=== PATIENT | female | born 1935 | race Caucasian/White ===

== ENCOUNTER 2016-05-24 09:09 | Outpatient (CLI) | payer MEDICARE, OTHER ==
[2016-05-24 10:15] LABS: Hemoglobin A1c 5.6 % (4.0-6.0)
[2016-05-24 10:33] LABS: ALT (SGPT) 12 U/L (0-55); AST (SGOT) 17 U/L (5-34); Albumin 3.5 g/dL (3.4-4.8); Alkaline Phosphatase 82 U/L (40-150); Anion Gap 19 mmol/L (10-20); BUN (Urea Nitrogen) 25 mg/dL (9.8-20.1); Bilirubin, Direct 0.3 mg/dL (0.1-0.3); Bilirubin, Total 0.6 mg/dL (0.2-1.2); Calc. Creatinine Clearance 0 mL/min (70-130); Calcium 9.1 mg/dL (7.8-10.44); Carbon Dioxide 31 mmol/L (23-31); Cardiac Risk 2.8 (Less than 4.5); Chloride 99 mmol/L (98-107); Cholesterol 123 mg/dL (< 200 Desired); Estimated GFR-MDRD 55; Glucose 121 mg/dL (83-110); HDL Cholesterol 44 mg/dL (>60 Neg Risk); LDL Cholesterol, Calculated 65 mg/dL; Potassium 3.5 mmol/L (3.5-5.1); Protein, Total 6.6 g/dL (5.8-8.1); Sodium 145 mmol/L (136-145); Triglycerides 68 mg/dL (Less than 150); Uric Acid 5.5 mg/dL (2.6-6.0)
[2016-05-24 12:01] LABS: #Basophils 0.1 thou/uL (0.0-0.2); #Eosinphils 0.2 thou/uL (0.0-0.7); #Lymphocytes 0.9 thou/uL (1.20-3.40); #Monocytes 0.7 thou/uL (0.11-0.59); #Neutrophils 6.4 thou/uL (1.40-6.50); %Basophils 0.7 % (0.0-1.0); %Eosinophils 2.9 % (0.0-10.0); %Lymphocytes 10.8 % (21.0-51.0); %Monocytes 7.9 % (0.0-10.0); %Neutrophils 77.6 % (42.0-75.0); Hemoglobin 11.9 g/dL (12.0-16.0); Mean Corpuscular HGB CONC 30.8 g/dL (32.0-36.0); Mean Corpuscular Hemoglobin 29.2 pg (27.0-31.0); Mean Corpuscular Volume 94.6 fl (81.0-99.0); Mean Platelet Volume 6.4 fL (7.4-10.4); Platelet Count 265 thou/uL (130-400); RBC Distribution Width 15.2 % (11.5-14.5); White Blood Cell (WBC) Count 8.3 thou/uL (4.8-10.8)
== END 2016-05-24 09:10 | disposition home or self-care (01) ==
LOC: MADLABBHPM 09:09
PROVIDERS: ATTEND Family Medicine
DX: D64.9 Anemia, unspecified (principal); I50.30 Unspecified diastolic (congestive) heart failure; F32.9 Major depressive disorder, single episode, unspecified; M10.9 Gout, unspecified; E11.9 Type 2 diabetes mellitus without complications
CPT/HCPCS: 36415; 80048; 80061; 80076; 83036; 84443; 84550; 85025

== ENCOUNTER 2016-07-26 09:17 | Outpatient (CLI) | payer MEDICARE, OTHER ==
[2016-07-26 10:18] LABS: ALT (SGPT) 8 U/L (0-55); AST (SGOT) 17 U/L (5-34); Albumin 3.7 g/dL (3.4-4.8); Alkaline Phosphatase 78 U/L (40-150); Anion Gap 16 mmol/L (10-20); BUN (Urea Nitrogen) 34 mg/dL (9.8-20.1); Bilirubin, Total 0.9 mg/dL (0.2-1.2); Calc. Creatinine Clearance 0 mL/min (70-130); Calcium 8.9 mg/dL (7.8-10.44); Carbon Dioxide 32 mmol/L (23-31); Cardiac Risk 3.3 (Less than 4.5); Chloride 95 mmol/L (98-107); Cholesterol 119 mg/dL (< 200 Desired); Estimated GFR-MDRD 38; Globulin 3.3 g/dL (2.4-3.5); Glucose 126 mg/dL (83-110); HDL Cholesterol 36 mg/dL (>60 Neg Risk); LDL Cholesterol, Calculated 67 mg/dL; Potassium 3.2 mmol/L (3.5-5.1); Sodium 140 mmol/L (136-145); Triglycerides 78 mg/dL (Less than 150)
== END 2016-07-26 09:18 | disposition home or self-care (01) ==
LOC: MADLABBHPM 09:17
PROVIDERS: ATTEND Family Medicine
DX: E87.6 Hypokalemia (principal)
CPT/HCPCS: 36415; 80053; 80061

== ENCOUNTER 2016-08-24 08:55 | Outpatient (CLI) | payer MEDICARE, OTHER ==
[2016-08-24 09:28] LABS: Hemoglobin A1c 6.2 % (4.0-6.0)
[2016-08-24 09:31] LABS: Anion Gap 18 mmol/L (10-20); BUN (Urea Nitrogen) 38 mg/dL (9.8-20.1); Calc. Creatinine Clearance 0 mL/min (70-130); Calcium 8.9 mg/dL (7.8-10.44); Carbon Dioxide 28 mmol/L (23-31); Chloride 98 mmol/L (98-107); Estimated GFR-MDRD 47; Glucose 153 mg/dL (83-110); Potassium 3.3 mmol/L (3.5-5.1); Sodium 141 mmol/L (136-145); Uric Acid 10.7 mg/dL (2.6-6.0)
[2016-08-24 09:33] LABS: #Basophils 0.1 thou/uL (0.0-0.2); #Eosinphils 0.2 thou/uL (0.0-0.7); #Lymphocytes 1.6 thou/uL (1.20-3.40); #Monocytes 0.8 thou/uL (0.11-0.59); #Neutrophils 9.6 thou/uL (1.40-6.50); %Lymphocytes 12.8 % (21.0-51.0); %Monocytes 6.8 % (0.0-10.0); %Neutrophils 77.4 % (42.0-75.0); Hemoglobin 11.6 g/dL (12.0-16.0); Mean Corpuscular HGB CONC 32.1 g/dL (32.0-36.0); Mean Corpuscular Volume 84.3 fl (81.0-99.0); Mean Platelet Volume 6.5 fL (7.4-10.4); Platelet Count 274 thou/uL (130-400); RBC Distribution Width 15.7 % (11.5-14.5); Red Blood Cell (RBC) Count 4.28 mill/uL (4.20-5.40); White Blood Cell (WBC) Count 12.4 thou/uL (4.8-10.8)
== END 2016-08-24 08:56 | disposition home or self-care (01) ==
LOC: MADLABBHPM 08:55
PROVIDERS: ATTEND Family Medicine
DX: D64.9 Anemia, unspecified (principal); M10.9 Gout, unspecified; E11.9 Type 2 diabetes mellitus without complications
CPT/HCPCS: 36415; 80048; 83036; 84550; 85025

== ENCOUNTER 2016-09-30 09:23 | Outpatient (CLI) | payer MEDICARE, OTHER ==
[2016-09-30 10:03] LABS: Anion Gap 16 mmol/L (10-20); BUN (Urea Nitrogen) 37 mg/dL (9.8-20.1); Calc. Creatinine Clearance 0 mL/min (70-130); Carbon Dioxide 33 mmol/L (23-31); Chloride 95 mmol/L (98-107); Estimated GFR-MDRD 42; Glucose 150 mg/dL (83-110); Sodium 141 mmol/L (136-145); Uric Acid 7.3 mg/dL (2.6-6.0)
[2016-09-30 11:08] LABS: #Basophils 0.1 thou/uL (0.0-0.2); #Eosinphils 0.2 thou/uL (0.0-0.7); #Lymphocytes 1.2 thou/uL (1.20-3.40); #Monocytes 0.9 thou/uL (0.11-0.59); #Neutrophils 8.9 thou/uL (1.40-6.50); %Basophils 0.5 % (0.0-1.0); %Lymphocytes 10.5 % (21.0-51.0); %Monocytes 8.1 % (0.0-10.0); %Neutrophils 78.9 % (42.0-75.0); Anisocytosis SLIGHT = 6-15 cells (100X) (0-5/hpf); Hemoglobin 9.5 g/dL (12.0-16.0); Hypochromia SLIGHT = 6-15 cells (100X) (0-5/hpf); MDiff Complete? YES; Mean Corpuscular HGB CONC 31.2 g/dL (32.0-36.0); Mean Corpuscular Hemoglobin 24.5 pg (27.0-31.0); Mean Corpuscular Volume 78.4 fl (81.0-99.0); Mean Platelet Volume 5.8 fL (7.4-10.4); Platelet Count 360 thou/uL (130-400); RBC Distribution Width 16.4 % (11.5-14.5); Red Blood Cell (RBC) Count 3.89 mill/uL (4.20-5.40); White Blood Cell (WBC) Count 11.3 thou/uL (4.8-10.8)
== END 2016-09-30 09:24 ==
LOC: MADLABBHPM 09:23
PROVIDERS: ATTEND Family Medicine
DX: I48.91 Unspecified atrial fibrillation (principal); M10.9 Gout, unspecified
CPT/HCPCS: 36415; 80048; 84550; 85025

== ENCOUNTER 2016-10-14 12:43 | Outpatient (CLI) | payer MEDICARE, OTHER ==
[2016-10-14 13:17] LABS: Anion Gap 17 mmol/L (10-20); BUN (Urea Nitrogen) 36 mg/dL (9.8-20.1); Calc. Creatinine Clearance 0 mL/min (70-130); Calcium 8.9 mg/dL (7.8-10.44); Carbon Dioxide 29 mmol/L (23-31); Chloride 97 mmol/L (98-107); Estimated GFR-MDRD 38; Glucose 146 mg/dL (83-110); Potassium 3.4 mmol/L (3.5-5.1); Sodium 140 mmol/L (136-145)
[2016-10-14 13:18] LABS: #Basophils 0.1 thou/uL (0.0-0.2); #Eosinphils 0.1 thou/uL (0.0-0.7); #Lymphocytes 1.1 thou/uL (1.20-3.40); #Monocytes 0.8 thou/uL (0.11-0.59); #Neutrophils 8.7 thou/uL (1.40-6.50); %Basophils 0.9 % (0.0-1.0); %Eosinophils 1.3 % (0.0-10.0); %Lymphocytes 10.1 % (21.0-51.0); %Monocytes 7.4 % (0.0-10.0); %Neutrophils 80.3 % (42.0-75.0); Hemoglobin 9.2 g/dL (12.0-16.0); MDiff Complete? YES; Mean Corpuscular HGB CONC 30.8 g/dL (32.0-36.0); Mean Corpuscular Hemoglobin 23.2 pg (27.0-31.0); Mean Corpuscular Volume 75.3 fl (81.0-99.0); Mean Platelet Volume 5.7 fL (7.4-10.4); Microcytosis SLIGHT = 6-15 cells (100X) (0-5/hpf); Platelet Count 354 thou/uL (130-400); RBC Distribution Width 16.3 % (11.5-14.5); Red Blood Cell (RBC) Count 3.96 mill/uL (4.20-5.40); White Blood Cell (WBC) Count 10.8 thou/uL (4.8-10.8)
== END 2016-10-14 12:44 | disposition home or self-care (01) ==
LOC: MADLABBHPM 12:43
PROVIDERS: ATTEND Family Medicine
DX: I50.30 Unspecified diastolic (congestive) heart failure (principal); D64.9 Anemia, unspecified
CPT/HCPCS: 36415; 80048; 85025

== ENCOUNTER 2017-01-06 19:13 | Inpatient (IN) | payer MEDICARE, OTHER ==
[2017-01-06] MEDS ORDERED: Acetaminophen 325 MG TAB PO PRN (21:28)
[2017-01-06] MEDS ORDERED: Atorvastatin Calcium 10 MG TAB PO SCH (21:30)
[2017-01-06] MEDS ORDERED: Cefuroxime Axetil 250 MG TAB PO SCH (21:30)
[2017-01-07 07:22] LABS: #Basophils 0.1 thou/uL (0.0-0.2); #Eosinphils 0.4 thou/uL (0.0-0.7); #Lymphocytes 0.8 thou/uL (1.20-3.40); #Neutrophils 8.5 thou/uL (1.40-6.50); %Basophils 1.1 % (0.0-1.0); %Eosinophils 3.5 % (0.0-10.0); %Lymphocytes 7.7 % (21.0-51.0); %Monocytes 9.1 % (0.0-10.0); %Neutrophils 78.6 % (42.0-75.0); Anion Gap 12 mmol/L (10-20); BUN (Urea Nitrogen) 22 mg/dL (9.8-20.1); Calc. Creatinine Clearance 65 mL/min (70-130); Calcium 8.2 mg/dL (7.8-10.44); Carbon Dioxide 28 mmol/L (23-31); Chloride 97 mmol/L (98-107); Estimated GFR-MDRD 71; Glucose 108 mg/dL (83-110); Hemoglobin 9.8 g/dL (12.0-16.0); Mean Corpuscular HGB CONC 30.9 g/dL (32.0-36.0); Mean Corpuscular Hemoglobin 27.5 pg (27.0-31.0); Mean Corpuscular Volume 89.1 fl (81.0-99.0); Mean Platelet Volume 5.9 fL (7.4-10.4); Platelet Count 351 thou/uL (130-400); Potassium 3.2 mmol/L (3.5-5.1); RBC Distribution Width 21.5 % (11.5-14.5); Red Blood Cell (RBC) Count 3.55 mill/uL (4.20-5.40); Sodium 134 mmol/L (136-145); White Blood Cell (WBC) Count 10.8 thou/uL (4.8-10.8)
[2017-01-07] MEDS: FLUoxetine HCl 20 MG CAP PO SCH (08:52)
[2017-01-07] MEDS: Cefuroxime Axetil 250 MG TAB PO SCH ×2 (08:52→20:30)
[2017-01-07] MEDS: Polyethylene Glycol 3350 17 GM Packet PO SCH (08:54)
[2017-01-07] MEDS: DOFETILIDE PO SCH ×2 (08:58→20:33)
[2017-01-07] MEDS ORDERED: Metoprolol Tartrate 25 MG TAB PO SCH (09:00)
[2017-01-07] MEDS ORDERED: Aspirin 81 mg Enteric Coated Tablet PO SCH (09:00)
[2017-01-07] MEDS ORDERED: Docusate 100 MG CAP PO SCH (09:00)
[2017-01-07] MEDS ORDERED: Potassium Chloride 20 MEQ TAB PO SCH ×2 (09:00→21:00)
[2017-01-07] MEDS ORDERED: Furosemide 40 MG TAB PO SCH ×2 (09:00→21:00)
[2017-01-07] MEDS ORDERED: DOFETILIDE PO SCH ×2 (09:00→21:00)
[2017-01-07] MEDS: Furosemide 80 MG TAB PO SCH (14:20)
--- NOTE | 2017-01-07 18:36 | HP ---
Admitted to [facility] on the evening of 01/06/2017. CHIEF COMPLAINT: Severe weakness. History of PRESENT ILLNESS: The patient is an 81-year-old white female who has a history of chronic atrial fibrillation for which she is on medication to control her rate and is underwent a Watchman procedure. She has chronic diastolic congestive heart failure and very sensitive to fluid overload. 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 She has chronic kidney disease, chronic hypoxemia requiring the supplemental O2 and hyperten shayla. Her functional activities are severely limited due to the severe hypoxemia. She has a lady t hat assists her with her ADLs, and requires assistance with all her extended ADLs. She ambulates wi th the use of a walker, requires at least standby assistance for bathing and dressing, but she is ab le to feed herself. She is usually continent of her bowel, but has some urinary incontinence. The patient was hospitalized recently at [facility] from 12/30/2016 to 01/06/2017, a fter several falls and weakness at home and on evaluation, was found to have right-sided pleural eff usion, right-sided pneumonia and hypotensive with evidence also of congestive failure. The patient underwent a CT angio of the chest since the D-dimer was elevated. No evidence of pulmonary embolism was found, but the patient had a right-sided pleural effusion and a consolidation in the right mid lung. The patient was admitted to the hospital and treated for the pneumonia and the congestive hea rt failure. Her right pleural effusion gradually increased in size and required a right-sided thora centesis by her pulmonary doctor, Dr. Jackson. A 1000 mL of fluid were removed that looked to be a tra nsudate. Blood cultures from this were negative. It was felt to be secondary to her failure. She had a fall prior to her admission and sustained a laceration to the right temporal area that was sut ured and also sprain of the right ankle involving the anterior talofibular ligament. No fractures w ere seen and she was seen in consult by Dr. Oropeza who placed her in a walking boot. She did hav e some low blood pressure during her admission and her metoprolol was reduced. Her condition gradua lly stabilized, but she was left extremely weak. Patient consequently upon her discharge on 017, was transferred to [facility] to the halfway facility for continued treatment of the above medical problems, but also for physical therapy in an effort to try to improve her general conditioning and functional capabilities. The patient was admitted on the evening of 01/06/2017. The patient was seen early on the morning of 01/07/2017 and the patient said she was better, but jus t weak. She said that she really not been up out of bed since her hospitalization and is weak. Her breathing is much better since her initial hospitalization on 12/30/2016. Patient felt like this m orning she had gone back into atrial fibrillation. The nurse said that her rate was a little high. Patient had not received her evening dose of Tikosyn, but did the morning dose. Her daughter bromalcom ht her home medicine in and she had received a dose. Her EKG was done this morning and shows today a paced rhythm with a rate of 81. Presently, patient said she is feeling better. She does not feel like her heart is racing anymore and she is not short of breath. PAST HISTORY: Hospitalized at [facility] from 12/30/2016 to 01/06/2017 for weakness, syn cope, and was found to have a large right-sided pleural effusion secondary to acute congestive heart failure and right-sided pneumonia. See discharge summary and see the history of present illness fo r more explanation. Patient has a history of recurrent atrial fibrillation for which she has underg one numerous procedures including electrical cardioversion, number of ablations and eventually ended up with chronic atrial fibrillation. She required a pacemaker and is now in chronic atrial fibrill ation, heart has paced, this pacemaker was placed in 06/2012. Her rate is controlled with metoprolo l and she is also on Tikosyn. She underwent a Watchman procedure in 01/2016, allowing her to discon tinue the Coumadin. She is a poor candidate for anticoagulation because of previous GI bleeds. Giovana javier has chronic diastolic congestive heart failure and has frequent acute exacerbation. She is tricia y fluids sensitive and usually is able to maintain without acute congestive heart failure on 80 mg o f Lasix twice today and the Zaroxolyn 5 mg if her weight increases more than 4 pounds and this was c ontinued daily to her weight is back to her baseline. Her base weight at home is 164. She also fol lows a 2 liter of fluid restriction. The patient has chronic anemia. She had a gastrointestinal bl eed in 10/29/2016. 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 She has a history of gout, diabetes type 2 that is diet controlled, chronic kidney disease stage 3, venous insufficiency of the lower extremities, vitamin D deficiency, hypercholesterolemia, gastroesophageal reflux, depression, pulmonary hypertension, GI bleed seconda ry to an antral gastritis and vascular ectasia on 11/03/2015 required transfusion and required EGD w ith cautery, colonoscopy on with removal of adenomatous polyps. The patient has had a cholecyste ctomy in 2004. Her last echocardiogram on 01/03/2017 showed severe tricuspid regurgitation, moderat e to severe mitral regurgitation, elevated pulmonary artery systolic pressure, severely enlarged rig ht ventricle, ejection fraction 55-60%. CT scan of the brain on 12/30/2016 negative for any acute c hanges. Carotid Doppler on 12/30/2016 negative for any significant stenosis. X-ray of the right an kle showed no fracture on 01/02/2017. PRESENT MEDICINES: Acetaminophen 325 mg 2 every 4 hours as needed, aspirin 81 mg daily, atorvastati n 40 mg daily, Ceftin 250 mg b.i.d. started on 01/03/2017, docusate sodium 100 mg b.i.d., fluoxetine 20 mg daily, metoprolol 6.25 mg b.i.d. at home was on 25 mg b.i.d., O2 at 2-3 liters a minute by na radha cannula, pantoprazole 40 mg daily, Tikosyn 250 mcg b.i.d., Zaroxolyn 5 mg 1 every 3-4 days as ne eded for weight gain of 4 pounds, potassium chloride 20 mEq daily, furosemide 40 mg 2 tablets b.i.d. , MiraLax 17 grams in 8 ounces of water daily. At home, patient was on Nexium 40 mg daily instead o f the pantoprazole. ALLERGIES: CELEBREX causes anaphylaxis, IODINE, SULFA DRUGS, PREDNISONE cause hallucinations. REVIEW OF SYSTEMS: The patient said she has not had any fever. She has been extremely weak. She d oes not think her weight has changed. HEAD AND NECK: No complaints. The patient said the laceration on the right temporal area, she thin ks is healing. PULMONARY: The patient said her breathing is much better. She is comfortable at rest. she is, thi s morning on 2 to 3 liters by nasal cannula with O2 sat 90%. CARDIOVASCULAR: No chest pain. GASTROINTESTINAL: No nausea or vomiting. GENITOURINARY: The patient has some episodes of incontinence. MUSCULOSKELETAL: The patient said she is very weak and very limited capability. ADLs: Patient usually ambulates with a walker since her hospitalization, she has not been able to g et up or walk. Patient able to feed herself. Patient has some incontinence of the urine, but shaji nent with her bowels. The patient requires assistance with bathing and dressing. HABITS: Alcohol none. Tobacco none. SOCIAL HISTORY: The patient is , lives at home with her . She has a caregiver that c omes in and assists and a daughter who assist with her care and all of her instrumental ADLs. CODE STATUS: FULL CODE. PHYSICAL EXAMINATION: GENERAL: Shows a very pleasant 81-year-old white female who is lying in bed with the head elevated. She looks comfortable, in no distress. VITAL SIGNS: Her temperature is 97.5, pulse 80, respirations 22, O2 sat 96% on 4 liters, blood pres sure 106/57. Her weight is 165, with her baseline at home 164. HEAD: Normocephalic. Patient has about 1.5 cm laceration on the right temporal area that has been sutured and healing. Sutures will be removed. There is some bruising around that area. EARS: TMs are clear. EYES: Pupils were equal, round, and reactive. Sclerae nonicteric. NOSE: Normal. MOUTH AND THROAT: Normal. NECK: Carotids are equal, have irregular rhythm. LUNGS: Clear. HEART: Irregularly irregular rhythm with adequate rate and she has a pacemaker in the left upper an terior chest. ABDOMEN: Soft and nontender. EXTREMITIES: No edema. NEUROLOGIC: Patient alert and oriented x3 with severe weakness, but no focal weakness. MUSCULOSKELETAL: Right ankle, the patient has little bruising over the lateral aspect of the ankle and swelling. EKG was performed this morning shows a paced rhythm with a rate of 81. IMPRESSION: 1. Severe generalized weakness and deconditioning. A. Chronic secondary to her severe comorbidities, but acutely exacerbated with recent hospitalizati on from 12/30/2016 until 01/06/2017. B. Complicated by inability to walk. C. Complicated by marked decrease in her functional capabilities. 2. Recent hospitalization at [facility] from 12/30/2016 until 01/06/2017 for acute on ch ronic diastolic congestive heart failure with large right-sided pleural effusion requiring thoracent esis, right middle and lower lobe pneumonia, in syncope and collapse and chronic atrial fibrillation . 3. Chronic atrial fibrillation. A. Status post electric cardioversion with recurrence. Status post multiple ablations with recurre nce. 4. Chronic atrial fibrillation requiring pacemaker and medicines to control rate. Status post Watc hman procedure on 01/30/2016. A. Rate controlled. B. Episode of increased rate this morning since she missed her dose of Tikosyn and her metoprolol d ose had been reduced, rate now back in the 1980s as of 01/07/2017. 5. Chronic diastolic heart failure. A. Recent acute exacerbation with acute congestive heart failure with right-sided pleural effusion requiring right-sided thoracentesis on 01/04/2017. B. Resolving as of 01/07/2007. 6. Severe pulmonary hypertension. A. Complicated by chronic hypoxemia. B. Complicated by severely enlarged right ventricle and severe tricuspid regurgitation. 7. Chronic hypoxic respiratory failure. A. Secondary to interstitial pulmonary disease from amiodarone lung toxicity. B. Requires supplemental O2, usually 2-3 liters per minute. 8. Hypertension. 9. Chronic kidney disease, stage 3. A. Presently GFR is 71. 10. Anemia of chronic illness. A. History of iron deficiency due to gastrointestinal bleed in 10/2015 from ectatic vessels that re quired coagulation to be hemoglobin 9.8 as of 01/07/2017. 11. Venous insufficiency of the lower extremities. 12. Hypercholesterolemia. 13. Depression, controlled. 14. Gastroesophageal reflux. 15. Mitral regurgitation. 16. Right middle and lower lobe pneumonia, found on admission on 12/30/2016, on Ceftin and improved . 17. Recent fall resulting in laceration right temporal area that was sutured in healing and sprain of the right ankle involving the anterior talofibular ligament. PLAN: The patient has been admitted to [facility] due to her severe deconditioni ng. Physical therapy will work with her in an effort to try to improve her general strength, gait, and functional capability. She had a little elevation of her heart rate this morning that is probab ly secondary to the missed dose of the Tikosyn last evening since it was not in the drug formulary. This has been restarted from the medicines her family brought in this morning. She also had a redu ction in her metoprolol, we will increase this to 12.5 mg b.i.d. At home, she was on 25 mg b.i.d. We will give patient her furosemide 80 mg b.i.d. and then keep her on the fluid restriction and then weigh her daily. If she has more than a 4 pound weight gain, we will give her the Zaroxolyn 5 mg. This regimen has worked well at home. Physical therapy and occupational therapy will evaluate her and began working with her. We will start her back on her MiraLax for constipation and she will con tinue to use the walking boot on her right ankle.
[2017-01-07] MEDS: Docusate 100 MG CAP PO SCH (20:28)
[2017-01-07] MEDS: Atorvastatin Calcium 10 MG TAB PO SCH (20:29)
[2017-01-07] MEDS: Metoprolol Tartrate 25 MG TAB PO SCH (20:31)
[2017-01-07] MEDS: Potassium Chloride 20 MEQ TAB PO SCH (20:33)
[2017-01-07] MEDS ORDERED: Cefuroxime Axetil 250 MG TAB PO SCH (21:00)
[2017-01-07] MEDS ORDERED: ATORVASTATIN CALCIUM 40 MG PO SCH (21:00)
[2017-01-08 06:01] LABS: Anion Gap 14 mmol/L (10-20); BUN (Urea Nitrogen) 26 mg/dL (9.8-20.1); Calc. Creatinine Clearance 56 mL/min (70-130); Calcium 8.4 mg/dL (7.8-10.44); Carbon Dioxide 29 mmol/L (23-31); Chloride 97 mmol/L (98-107); Estimated GFR-MDRD 60; Glucose 135 mg/dL (83-110); Potassium 3.1 mmol/L (3.5-5.1); Sodium 137 mmol/L (136-145)
[2017-01-08] MEDS: Docusate 100 MG CAP PO SCH ×2 (08:35→21:39)
[2017-01-08] MEDS: FLUoxetine HCl 20 MG CAP PO SCH (08:35)
[2017-01-08] MEDS: Furosemide 80 MG TAB PO SCH ×2 (08:35→15:02)
[2017-01-08] MEDS: Metoprolol Tartrate 25 MG TAB PO SCH ×2 (08:35→21:40)
[2017-01-08] MEDS: Cefuroxime Axetil 250 MG TAB PO SCH ×2 (08:35→21:40)
[2017-01-08] MEDS: DOFETILIDE PO SCH ×2 (08:36→21:40)
[2017-01-08] MEDS: Potassium Chloride 20 MEQ TAB PO SCH ×3 (08:36→21:39)
[2017-01-08] MEDS: Polyethylene Glycol 3350 17 GM Packet PO SCH (08:38)
[2017-01-08] MEDS ORDERED: Polyethylene Glycol 3350 17 GM Packet PO SCH (09:00)
[2017-01-08] MEDS ORDERED: FLUoxetine HCl 20 MG CAP PO SCH (09:00)
--- NOTE | 2017-01-08 13:16 | PRG ---
DATE OF SERVICE: 01/08/2017. SUBJECTIVE: The patient says she is feeling a lot better. She said her breathing is better. Her w eight is down to another 2 pounds. She was able to get up on the bedside commode. Overall, she fee ls much better up. Stitches were removed from the laceration to the right temporal area yesterday. She had her ankles feeling better on the right foot. OBJECTIVE: GENERAL: The patient is lying in bed. She is smiling, looks very happy, appears in no distress. VITAL SIGNS: Shows a temperature 97.3, pulse 70, respirations 22, pulse 96 on 2 L, blood pressure 1 12/56, and her weight is 164, yesterday, her weight was 165. LUNGS: Clear. HEART: Regular rate. EXTREMITIES: No edema. LABORATORY DATA: Sodium 137, potassium 3.1, BUN 26, creatinine 0.9, and GFR 60. FBS 135. ASSESSMENT: 1. Severe generalized weakness and deconditioning. A. Chronic secondary to her severe comorbidities, but acutely exacerbated with recent hospitalizati on from 01/09/2017 until 01/06/2017. B. Presented here with inability to walk and severe weakness. C. Complicated by marked decline in her functional capabilities. D. Improved as of 01/08/2017. 2. Recent hospitalization at [facility] from 12/30/2016 until 01/06/2017 for acute on ch ronic diastolic congestive heart failure with large right-sided pleural effusion requiring thoracent esis with 1000 mL of transudate and right middle and lower lobe pneumonia and syncope and collapse a nd chronic atrial fibrillation. 3. Chronic atrial fibrillation. A. Status post electrical cardioversion with recurrence. Statuses post multiple ablations with rec urrence. B. Required pacemaker for prevention of bradycardia and medications to control the rapid rate. C. Status post Watchman procedure on 01/30/2016. D. Some episodes of increased rate yesterday have resolved since patient is back on her Tikosyn reg ularly and her metoprolol was increased. 4. Chronic diastolic heart failure. A. Recent acute exacerbation with acute congestive heart failure with right-sided pleural effusion requiring right thoracentesis on 01/04/2017. B. Resolved as of 01/07/2017. 5. Severe pulmonary hypertension. A. Complicated by chronic hypoxemia. B. Complicated by severely enlarged right ventricle and severe tricuspid regurgitation. 6. Chronic hypoxic respiratory failure. A. Secondary to interstitial pulmonary disease from amiodarone lung toxicity. B. Requires supplemental O2 usually 2-3 liters per minute. 7. Hypertension. 8. Chronic kidney disease, stage 3. A. Stable. 9. Anemia of chronic illness. 10. Venous insufficiency of the lower extremity. 11. Hypercholesterolemia. 12. Depression, controlled. 13. Gastroesophageal reflux disease. 14. Mitral regurgitation. 15. Right middle and lower lobe pneumonia found on admission on 12/30/2016. A. Ceftin and resolving. 16. Recent fall, resulting laceration right zoroastrianism area that is healing and sutures out and sprain of the right ankle that is improving. PLAN: Overall, the patient looks better. We will continue the physical therapy. We will continue the medication well. Her potassium is still low and has dropped some. We will increase her potassi um supplementation 20 mEq 3 times a day. Continue PT.
[2017-01-08] MEDS: Atorvastatin Calcium 10 MG TAB PO SCH (21:39)
[2017-01-09] MEDS: Polyethylene Glycol 3350 17 GM Packet PO SCH (08:19)
[2017-01-09] MEDS: Docusate 100 MG CAP PO SCH ×2 (08:20→20:57)
[2017-01-09] MEDS: Furosemide 80 MG TAB PO SCH ×2 (08:20→14:10)
[2017-01-09] MEDS: Cefuroxime Axetil 250 MG TAB PO SCH ×2 (08:20→20:57)
[2017-01-09] MEDS: Metoprolol Tartrate 25 MG TAB PO SCH ×2 (08:20→20:57)
[2017-01-09] MEDS: Potassium Chloride 20 MEQ TAB PO SCH ×3 (08:20→20:59)
[2017-01-09] MEDS: DOFETILIDE PO SCH ×2 (08:21→20:58)
[2017-01-09] MEDS: FLUoxetine HCl 20 MG CAP PO SCH (08:22)
[2017-01-09] MEDS: Atorvastatin Calcium 10 MG TAB PO SCH (20:57)
[2017-01-10 05:20] LABS: #Basophils 0.1 thou/uL (0.0-0.2); #Eosinphils 0.4 thou/uL (0.0-0.7); #Lymphocytes 1.2 thou/uL (1.20-3.40); #Neutrophils 9.7 thou/uL (1.40-6.50); %Eosinophils 2.9 % (0.0-10.0); %Lymphocytes 9.5 % (21.0-51.0); %Monocytes 7.7 % (0.0-10.0); Hemoglobin 10.3 g/dL (12.0-16.0); Mean Corpuscular HGB CONC 30.5 g/dL (32.0-36.0); Mean Corpuscular Hemoglobin 26.8 pg (27.0-31.0); Mean Corpuscular Volume 87.9 fl (81.0-99.0); Mean Platelet Volume 5.4 fL (7.4-10.4); Platelet Count 468 thou/uL (130-400); RBC Distribution Width 21.9 % (11.5-14.5); Red Blood Cell (RBC) Count 3.85 mill/uL (4.20-5.40); White Blood Cell (WBC) Count 12.3 thou/uL (4.8-10.8)
[2017-01-10 05:23] LABS: Anisocytosis SLIGHT = 6-15 cells (100X) (0-5/hpf); Hypochromia SLIGHT = 6-15 cells (100X) (0-5/hpf)
[2017-01-10 05:35] LABS: Anion Gap 15 mmol/L (10-20); BUN (Urea Nitrogen) 31 mg/dL (9.8-20.1); Calc. Creatinine Clearance 60 mL/min (70-130); Calcium 8.6 mg/dL (7.8-10.44); Carbon Dioxide 28 mmol/L (23-31); Chloride 101 mmol/L (98-107); Estimated GFR-MDRD 66; Glucose 127 mg/dL (83-110); Potassium 3.8 mmol/L (3.5-5.1); Sodium 140 mmol/L (136-145)
[2017-01-10] MEDS: Polyethylene Glycol 3350 17 GM Packet PO SCH (08:57)
[2017-01-10] MEDS: Docusate 100 MG CAP PO SCH ×2 (08:57→20:52)
[2017-01-10] MEDS: Cefuroxime Axetil 250 MG TAB PO SCH ×2 (08:57→20:52)
[2017-01-10] MEDS: FLUoxetine HCl 20 MG CAP PO SCH (08:58)
[2017-01-10] MEDS: Metoprolol Tartrate 25 MG TAB PO SCH ×2 (08:58→20:52)
[2017-01-10] MEDS: DOFETILIDE PO SCH ×2 (08:58→20:54)
[2017-01-10] MEDS: Potassium Chloride 20 MEQ TAB PO SCH ×2 (08:58→20:54)
[2017-01-10] MEDS: Furosemide 80 MG TAB PO SCH ×2 (08:59→13:45)
--- NOTE | 2017-01-10 12:34 | PRG ---
DATE OF SERVICE: 01/10/2017 SUBJECTIVE: The patient said she is feeling better. She has walked just a little bit. She is wear ing her walking boot on the right leg and this is very comfortable and allows her to walk easier. H er ankle is doing better. She said she gets a little out of breath after any exertion going to the bathroom and coming back to her chair, but this is typical for her. She is not otherwise having any breathing trouble. At rest, nor when she is lying down. She said her weight dropped a couple more pounds. OBJECTIVE: The patient is sitting up in a bedside chair, is in good spirits, appears in no distress . Her temperature is 96.9, pulse 72, respirations 18, O2 sat 92% on 2 liters. Her blood pressure i s 119/58. Her weight is 164. Her lungs are clear. Heart, regular rate. Extremities, no edema. T he patient has a short leg walking removable cast on the right lower leg. Her lab shows an H\T\H of 10.3 and 33.9, white cell count 12,300, 79% segs, 10% lymphocytes, platelet count of 468,000. Her sodium is 140, potassium is up to 3.8, BUN 31, creatinine 0.83, glucose 127. ASSESSMENT: 1. Severe generalized weakness and deconditioning. A. Chronic secondary to her severe comorbidities, but acutely exacerbated with recent hospitalizati on from 12/30/2016 until 01/06/2017. B. Presented here with inability to walk or even sit up in a bedside chair due to the severe weakne ss. C. Complicated by marked decline in her functional capabilities. D. Improved where she is tolerating sitting up in a chair and walking short distances as of 017. 2. Recent hospitalization at [facility] from 12/30/2016 until 01/06/2017 for acute on ch ronic diastolic congestive heart failure with large right-sided pleural effusion requiring thoracent esis of 1000 mL of a transudate and right middle and lower lobe pneumonia and syncope and collapse a nd chronic atrial fibrillation. 3. Chronic atrial fibrillation. A. Status post electrocardioversion with recurrence. Status post multiple ablation with recurrence . B. Required pacemaker for prevention of symptomatic bradycardia and medication controlled the rapid rate. C. Status post Watchman procedure 12/29/2016. D. Chronic atrial fibrillation, but rate controlled. 4. Chronic diastolic heart failure. A. Recent acute exacerbation with acute congestive heart failure and right-sided pleural effusion r equiring right thoracentesis 01/04/2017. B. Resolved as of 01/07/2017. C. No evidence of acute congestive heart failure as of 01/10/2007. 5. Severe pulmonary hypertension. A. Complicated by chronic hypoxemia. B. Complicated by severe enlargement of the right ventricle with severe tricuspid regurgitation. 6. Chronic hypoxic respiratory failure. A. 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 B. Requires supplemental O2, usually 2-3 liters per minute. 7. Hypertension. 8. Chronic kidney disease stage 3, stable. 9. Anemia of chronic illness. 10. Venous insufficiency. 11. Hypercholesterolemia. 12. Depression, controlled. 13. Gastroesophageal reflux disease. 14. Mitral regurgitation. 15. Right middle and lower lobe pneumonia found on admission on 12/30/2016. A. On Ceftin. B. Resolving. 16. Recent fall resulting in a laceration of the right nondenominational area that required sutures that is he aling and sutures removed and sprain of the right ankle involving the right anterior talofibular lig ament that is improving and stabilized with a lower leg walking boot when ambulating PLAN: Overall, patient is improving. The hypokalemia is improved. We will continue present care. Continue physical therapy. We will reduce her potassium back to twice a day and continue to follow her potassium level.
[2017-01-10] MEDS ORDERED: Phytonadione 10 MG/ML AMP ONE (15:31)
[2017-01-10] MEDS: Atorvastatin Calcium 10 MG TAB PO SCH (20:52)
[2017-01-11] MEDS: Cefuroxime Axetil 250 MG TAB PO SCH ×2 (08:15→21:21)
[2017-01-11] MEDS: FLUoxetine HCl 20 MG CAP PO SCH (08:16)
[2017-01-11] MEDS: Metoprolol Tartrate 25 MG TAB PO SCH ×2 (08:16→21:21)
[2017-01-11] MEDS: Docusate 100 MG CAP PO SCH ×2 (08:16→21:21)
[2017-01-11] MEDS: Furosemide 80 MG TAB PO SCH ×2 (08:16→13:59)
[2017-01-11] MEDS: DOFETILIDE PO SCH ×2 (08:17→21:24)
[2017-01-11] MEDS: Potassium Chloride 20 MEQ TAB PO SCH ×2 (08:17→21:23)
[2017-01-11] MEDS: Polyethylene Glycol 3350 17 GM Packet PO SCH (08:17)
--- NOTE | 2017-01-11 09:39 | PRG ---
DATE OF SERVICE: 01/11/2017 SUBJECTIVE: The patient said she is feeling just fine. She had a good night's sleep. She walked s ome with physical therapy yesterday using a walking boot on that right foot. OBJECTIVE: The patient is sitting up at the bedside. She is alert, talkative, and appears very com fortable and happy and in no distress. Her vital signs and show a temperature of 98.8, pulse 79, re spirations 20, O2 sat 90% on 3-1/2 liters, blood pressure 115/71. Her weight is 165, which is her a dmission weight. She had dropped to 163 on 01/09/2017. Her lungs are clear. Heart has regular rat e. Extremities, no edema except for some mild edema over the right ankle from the sprain. ASSESSMENT: 1. Severe generalized weakness and deconditioning. A. Chronic secondary to her severe comorbidities, but acutely exacerbated with recent hospitalizati on from 12/30/2016 until 01/06/2017. B. Presented here with inability to walk or even sit up at a bedside chair due to the severe weakne ss. C. Complicated by marked decline in her functional capabilities. D. Improved where she is now sitting in a chair and walking short distances as of 01/11/2017. 2. Recent hospitalization at [facility] from 12/30/2016 to 01/06/2017 for acute on chron ic diastolic congestive heart failure with large right-sided pleural effusion requiring thoracentesi s of 1000 mL of a transudate and right middle and lower lobe pneumonia and syncope and collapse and her chronic atrial fib. 3. Chronic atrial fibrillation. A. Status post electrocardioversion with recurrence. Status post multiple ablations with recurrenc e. B. Requiring pacemaker for prevention of symptomatic bradycardia and medication controlled rapid ra te. C. Status post Watchman procedure on 01/2016. D. Chronic atrial fibrillation, but rate controlled. 4. Chronic diastolic heart failure. A. Recent acute exacerbation with acute congestive heart failure and right-sided pleural effusion r equiring thoracentesis on 01/04/2017. B. Resolved as of 01/07/2017. C. No evidence of acute congestive heart failure as of 01/11/2017. 5. Severe pulmonary hypertension. A. Complicated by chronic hypoxemia. B. Complicated by severe enlargement of the right ventricle with severe tricuspid regurgitation. 6. Chronic hypoxic respiratory failure. A. Secondary to interstitial pulmonary disease from amiodarone toxicity B. Requires supplemental O2, usually 2-3 liters per minute. 7. Hypertension. 8. Chronic kidney disease stage 3, stable. 9. Anemia of chronic illness. 10. Venous insufficiency. 11. Hypercholesterolemia. 12. Depression, controlled. 13. Gastroesophageal reflux disease, controlled. 14. Mitral regurgitation, stable. 15. Right middle lower lobe pneumonia, resolving. 16. Recent fall resulting in a laceration to the right temporal area that has healed and sprain of the right ankle involving the anterior talofibular ligament improving, requiring a lower leg walking boot for ambulation. PLAN: The patient continues to improve. We will continue to closely monitor her weight and continu e the fluid restriction, continue the diuretics and will utilize Zaroxolyn p.r.n. marked weight gain or shortness of breath. Continue PT.
[2017-01-11] MEDS: Atorvastatin Calcium 10 MG TAB PO SCH (21:21)
[2017-01-12 05:58] LABS: Anion Gap 15 mmol/L (10-20); BUN (Urea Nitrogen) 30 mg/dL (9.8-20.1); Calc. Creatinine Clearance 63 mL/min (70-130); Calcium 8.2 mg/dL (7.8-10.44); Carbon Dioxide 24 mmol/L (23-31); Chloride 103 mmol/L (98-107); Estimated GFR-MDRD 68; Glucose 112 mg/dL (83-110); Potassium 3.7 mmol/L (3.5-5.1); Sodium 138 mmol/L (136-145)
[2017-01-12 06:03] LABS: #Basophils 0.1 thou/uL (0.0-0.2); #Eosinphils 0.4 thou/uL (0.0-0.7); #Monocytes 0.8 thou/uL (0.11-0.59); #Neutrophils 8.9 thou/uL (1.40-6.50); %Basophils 0.8 % (0.0-1.0); %Eosinophils 3.3 % (0.0-10.0); %Monocytes 6.7 % (0.0-10.0); %Neutrophils 80.2 % (42.0-75.0); Hemoglobin 9.9 g/dL (12.0-16.0); Mean Corpuscular HGB CONC 30.6 g/dL (32.0-36.0); Mean Corpuscular Hemoglobin 26.8 pg (27.0-31.0); Mean Corpuscular Volume 87.5 fl (81.0-99.0); Mean Platelet Volume 5.6 fL (7.4-10.4); Platelet Count 437 thou/uL (130-400); RBC Distribution Width 22.1 % (11.5-14.5); Red Blood Cell (RBC) Count 3.68 mill/uL (4.20-5.40); White Blood Cell (WBC) Count 11.1 thou/uL (4.8-10.8)
[2017-01-12] MEDS: Polyethylene Glycol 3350 17 GM Packet PO SCH (08:24)
[2017-01-12] MEDS: Metoprolol Tartrate 25 MG TAB PO SCH ×2 (08:26→21:06)
[2017-01-12] MEDS: Docusate 100 MG CAP PO SCH ×2 (08:26→21:06)
[2017-01-12] MEDS: Cefuroxime Axetil 250 MG TAB PO SCH ×2 (08:26→21:07)
[2017-01-12] MEDS: DOFETILIDE PO SCH ×2 (08:26→21:07)
[2017-01-12] MEDS: Potassium Chloride 20 MEQ TAB PO SCH ×2 (08:28→21:07)
[2017-01-12] MEDS: FLUoxetine HCl 20 MG CAP PO SCH (08:29)
[2017-01-12] MEDS: Furosemide 80 MG TAB PO SCH ×2 (08:29→13:50)
--- NOTE | 2017-01-12 19:26 | PRG ---
DATE OF SERVICE: 01/12/2017 SUBJECTIVE: The patient said that she is doing fine. She slept well. She walked some with [employer] therapy. Her ankles are feeling better. OBJECTIVE: GENERAL: The patient is alert, appears very comfortable and in no distress. VITAL SIGNS: Shows a temperature of 97.6, pulse 72, respirations 18, O2 sat 91% on 3-1/2 liters and blood pressure 100/56. Her weight is 166. Output is 1100. LUNGS: Clear except there is a pleural rub over the right upper anterior chest. This can be heard and also felt with the hand. HEART: Regular rate. EXTREMITIES: No edema. LABORATORY DATA: Her lab shows an hemoglobin and hematocrit of 9.9 and 32.2, white cell count 11,10 0 with 80% segs, 9% lymphocytes and platelet count of 437,000. Her sodium 138, potassium 3.7, BUN 3 0, creatinine 0.81 and GFR 68. FBS 112. ASSESSMENT: 1. Severe generalized weakness and deconditioning. A. Chronic secondary to her severe comorbidities, but acutely exacerbated with recent hospitalizati on from 12/30/2016-01/06/2017. B. Presenting here with inability to walk or even sit up in a chair due to the severe weakness. C. Complicated by marked decline in her functional capabilities. D. Improved where she is now sitting comfortably in a bedside chair and walking a little further ea ch day as of 01/12/2017. 2. Recent hospitalization at [facility] from 12/30-01/06 for acute on chronic diastolic congestive heart failure with large right-sided pleural effusion requiring thoracentesis of 1000 mL of a transudate, right middle and lower lobe pneumonia and syncope, collapse and her chronic atrial fibrillation. 3. Chronic atrial fibrillation. A. Status post electrocardioversion with recurrent. Status post multiple ablations with recurrence . B. Requiring pacemaker for prevention of symptomatic bradycardia and medications to control rapid r ate. C. Status post Watchman procedure on 02/03/2016. The chronic atrial fibrillation, but rate control led. 4. Chronic diastolic heart failure. A. Recent acute exacerbation with acute congestive heart failure and right-sided pleural effusion r equiring thoracentesis on 01/04/2017. B. Resolved as of 01/07/2017. C. No evidence of acute congestive heart failure as of 01/12/2017. 5. Severe pulmonary hypertension. A. Complicated by chronic hypoxemia. B. Complicated by severe enlargement of the right ventricle was severe tricuspid regurgitation. 6. Chronic hypoxic respiratory failure. A. 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 B. Requires continuous supplemental O2 usually at 2-3 liters per minute. 7. Hypertension. 8. Chronic kidney disease stage 3. 9. Anemia of chronic illness. A. Hemoglobin up to 99 as of 01/12/2017. 10. Hypercholesterolemia. 11. Depression controlled. 12. Gastroesophageal reflux disease, controlled. 13. Mitral regurgitation stable. 14. Right middle lower lobe pneumonia, resolving. 15. Recent fall resulting laceration right temporal area and the sutures have been removed and area healing and sprain of the right ankle involving the anterior talofibular ligament that is improving . Requires lower leg walking boot for ambulation. 16. Right anterior pleural rub from recent pleural effusion and thoracentesis. PLAN: Overall, the patient continues to improve. We will continue present care. Anticipate gradua l resolution of the pleural rub. Presently, it is not creating any pain. Continue physical therapy .
[2017-01-12] MEDS: Atorvastatin Calcium 10 MG TAB PO SCH (21:06)
[2017-01-13] MEDS: DOFETILIDE PO SCH ×2 (08:46→21:19)
[2017-01-13] MEDS: Metoprolol Tartrate 25 MG TAB PO SCH ×2 (08:47→21:18)
[2017-01-13] MEDS: FLUoxetine HCl 20 MG CAP PO SCH (08:47)
[2017-01-13] MEDS: Polyethylene Glycol 3350 17 GM Packet PO SCH (08:47)
[2017-01-13] MEDS: Potassium Chloride 20 MEQ TAB PO SCH ×2 (08:48→21:19)
[2017-01-13] MEDS: Furosemide 80 MG TAB PO SCH ×2 (08:48→14:28)
[2017-01-13] MEDS: Cefuroxime Axetil 250 MG TAB PO SCH ×2 (08:48→21:20)
[2017-01-13] MEDS: Docusate 100 MG CAP PO SCH ×2 (08:52→21:18)
[2017-01-13] MEDS: Atorvastatin Calcium 10 MG TAB PO SCH (21:17)
[2017-01-14] MEDS: Furosemide 80 MG TAB PO SCH ×2 (08:28→14:37)
[2017-01-14] MEDS: Docusate 100 MG CAP PO SCH ×2 (08:28→21:29)
[2017-01-14] MEDS: Potassium Chloride 20 MEQ TAB PO SCH ×2 (08:28→21:27)
[2017-01-14] MEDS: FLUoxetine HCl 20 MG CAP PO SCH (08:28)
[2017-01-14] MEDS: Metoprolol Tartrate 25 MG TAB PO SCH ×2 (08:29→21:29)
[2017-01-14] MEDS: DOFETILIDE PO SCH ×2 (08:38→21:27)
[2017-01-14] MEDS: Polyethylene Glycol 3350 17 GM Packet PO SCH (08:38)
[2017-01-14] MEDS ORDERED: Metolazone 5 MG TAB PO SCH (09:15)
[2017-01-14] MEDS: Atorvastatin Calcium 10 MG TAB PO SCH (21:26)
--- NOTE | 2017-01-14 23:04 | PRG ---
DATE OF SERVICE: 01/14/2017 SUBJECTIVE: Patient thinks she is doing good. She slept good last night. She is participating in physical therapy. Her breathing has been good as long as she wears her oxygen. She has noticed mary t she started developed a little fluid in her legs. OBJECTIVE: GENERAL: The patient lying in bed, alert, and appears very comfortable and in no distress. VITAL SIGNS: Her temperature is 96.6, pulse 71, respirations 20, O2 sat 95% on 3.5 liters, blood pr essure 118/56. Her weight is up to 166. LUNGS: Clear. There is still pleural rub that can be heard and also felt in the right upper anteri or chest this is much less somewhat it has been remains nontender. HEART: Regular rate. EXTREMITIES: 1+ edema. ASSESSMENT: 1. Severe generalized weakness and deconditioning. A. Chronic secondary to her severe comorbidities, but acutely exacerbated with recent hospitalizati on from 12/30/2016 until 01/06/2017. B. Presenting here with inability to walk or even sit up in the chair due to the severe weakness. C. Complicated by marked decline in her functional capabilities. D. Marked improvement where she is comfortably sits in a bedside chair and now is walking a little further each day as of 01/14/2017. 2. 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 3. Chronic atrial fibrillation. A. Status post electrocardioversion with recurrence. Status post multiple ablations with recurrence . B. Requiring pacemaker for prevention of symptomatic bradycardia and medications controlled with ra pid rate. C. Status post Watchman procedure 02/03/2016. D. Chronic atrial fibrillation with rate controlled. 4. Chronic diastolic heart failure. A. Recent acute exacerbation during hospitalization from 12/30/2016 until 01/06/2017. B. No evidence of acute congestive heart failure, but patient is having increase in weight, increas ed peripheral edema as of 01/14/2017. 5. Severe pulmonary hypertension. A. Complicated by chronic hypoxemia. B. Complicated by severe enlargement of the right ventricle with severe tricuspid regurgitation. 6. Chronic hypoxic respiratory failure. A. 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 B. Requires continuous supplemental O2, usually at 2 to 3 liters per minute. 7. Hypertension. 8. Chronic kidney disease stage 3. 9. Anemia of chronic illness. 10. Hypercholesterolemia. 11. Depression controlled. 12. Gastroesophageal reflux disease, controlled. 13. Mitral regurgitation, stable. 14. Right middle lower lobe pneumonia clinically, resolving. 15. Recent fall prior to hospitalization resulting laceration right temporal area with suturing mary t have been removed and the area healing and sprain of the right ankle involving the anterior talofi bular ligament for which she uses a lower leg walking boot, improving. 16. Right anterior pleural rub, improving. PLAN: Overall, patient is making good progress. She is starting to retain more fluid demonstrated by peripheral edema and increased weight. Ordinarily at home when this happens, will use Zaroxolyn 5 mg to give a synergistic effect with a Lasix for diuresis. We will give patient 5 mg a day. Cont inue her physical therapy.
[2017-01-15 05:23] LABS: Anion Gap 14 mmol/L (10-20); BUN (Urea Nitrogen) 33 mg/dL (9.8-20.1); Calc. Creatinine Clearance 47 mL/min (70-130); Calcium 8.3 mg/dL (7.8-10.44); Carbon Dioxide 26 mmol/L (23-31); Chloride 103 mmol/L (98-107); Estimated GFR-MDRD 49; Glucose 121 mg/dL (83-110); Potassium 3.4 mmol/L (3.5-5.1); Sodium 140 mmol/L (136-145)
[2017-01-15] MEDS: FLUoxetine HCl 20 MG CAP PO SCH (08:39)
[2017-01-15] MEDS: Docusate 100 MG CAP PO SCH ×2 (08:39→21:36)
[2017-01-15] MEDS: Furosemide 80 MG TAB PO SCH ×2 (08:39→13:17)
[2017-01-15] MEDS: Metoprolol Tartrate 25 MG TAB PO SCH ×2 (08:39→21:36)
[2017-01-15] MEDS: Potassium Chloride 20 MEQ TAB PO SCH ×2 (08:39→21:37)
[2017-01-15] MEDS: DOFETILIDE PO SCH ×2 (08:40→21:37)
[2017-01-15] MEDS: Polyethylene Glycol 3350 17 GM Packet PO SCH (08:40)
--- NOTE | 2017-01-15 12:25 | PRG ---
DATE OF SERVICE: 01/15/2017 SUBJECTIVE: Patient said she is doing good. She said she had to urinate a lot yesterday and last e vening after she took Zaroxolyn, she is having no trouble with her breathing and at rest, she contin ues to use her oxygen. Her ankle was getting better and she is walking without a walking boot just within her room. OBJECTIVE: GENERAL: Patient is sitting up in her chair, she is alert, appears very comfortable in no distress. VITAL SIGNS: Shows temperature 96.8. Her pulse is 71, respirations 20, O2 sat 93% on 3 liters, blo od pressure 111/56. Her weight was 166, stable. She said yesterday they weighed her 168. LUNGS: Clear, did not hear the pleural rub today. HEART: Regular rate. EXTREMITIES: Trace edema. LABORATORY DATA: BUN 33, creatinine 1.07, GFR dropped to 47, probably as a result of the recent inc reased diuresis from the Zaroxolyn along with the furosemide. FBS 121. ASSESSMENT: 1. Severe generalized weakness and deconditioning. A. Chronic secondary to her severe comorbidities, but acutely exacerbated with recent hospitalizati on from 12/30/2016 to 01/06/2017. B. Presenting here with inability to walk or even sit up in a chair due to the severe weakness. C. Complicated by marked decline in her functional capabilities. D. Marked improvement where she comfortably sits and is walking in the room and some in the hallway s as of 01/15/2017. 2. Recent hospitalizations at [facility] from 12/30/2016 until 01/06/2017 for acute on c hronic diastolic congestive heart failure with large right-sided pleural effusion requiring thoracen tesis of 1000 mL of her transudate, right middle and lower lobe pneumonia, syncope and collapse and chronic atrial fibrillation. 3. Chronic atrial fibrillation. A. Status post electrocardioversion with recurrence. B. Status post multiple ablations with recurrence. C. Required pacemaker for prevention of symptomatic bradycardia and medications for control of rapi d rates. D. Status post Watchman procedure, 02/03/2016. E. Now on chronic atrial fibrillation, but rates controlled. 4. Chronic diastolic heart failure. A. Recent acute exacerbation during hospitalization from 12/30/2016 to 01/06/2017. B. No evidence of acute congestive heart failure. C. Recent increase in weight and increase in edema, resolved after a dose of Zaroxolyn on 7. 5. Severe pulmonary hypertension. A. Complicated by chronic hypoxemia. B. Complicated by severe enlargement of the right ventricle with severe tricuspid regurgitation. 6. Chronic hypoxic respiratory failure. A. 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 B. Requires continue supplemental O2 usually 2 to 3 liters per minute. 7. Hypertension. 8. Chronic kidney disease, stage 3. A. Mild decline in GFR as of 01/15/2017 to 49 from recent use of Zaroxolyn along with the furosemid e. 9. Anemia of chronic illness. 10. Depression, controlled. 11. Hypercholesterolemia. 12. Mitral regurgitation. 13. Right middle and lower lobe pneumonia. A. Clinically resolved. B. Has completed 10-day course of oral Ceftin since she has been here at this hospital. 14. Recent fall prior to hospitalization, results a laceration in right temporal area that required suturing. Sutures have been removed, area healing; also resulted in a right sprained ankle involvi ng the anterior talofibular ligament that is improving. 15. Right anterior pleural rub, resolving. PLAN: Overall, patient looks better. We will continue her present care. Continue physical therapy .
[2017-01-15] MEDS: Atorvastatin Calcium 10 MG TAB PO SCH (21:35)
[2017-01-16] MEDS: Metoprolol Tartrate 25 MG TAB PO SCH ×2 (08:43→20:42)
[2017-01-16] MEDS: FLUoxetine HCl 20 MG CAP PO SCH (08:43)
[2017-01-16] MEDS: Docusate 100 MG CAP PO SCH ×2 (08:49→20:42)
[2017-01-16] MEDS: Polyethylene Glycol 3350 17 GM Packet PO SCH (08:49)
[2017-01-16] MEDS: DOFETILIDE PO SCH ×2 (08:49→20:46)
[2017-01-16] MEDS: Potassium Chloride 20 MEQ TAB PO SCH ×2 (08:51→20:42)
[2017-01-16] MEDS: Furosemide 80 MG TAB PO SCH ×2 (09:35→14:29)
[2017-01-16] MEDS: Atorvastatin Calcium 10 MG TAB PO SCH (20:42)
[2017-01-17 05:59] LABS: Anion Gap 12 mmol/L (10-20); BUN (Urea Nitrogen) 32 mg/dL (9.8-20.1); Calc. Creatinine Clearance 58 mL/min (70-130); Calcium 8.1 mg/dL (7.8-10.44); Carbon Dioxide 31 mmol/L (23-31); Chloride 101 mmol/L (98-107); Estimated GFR-MDRD 64; Glucose 109 mg/dL (83-110); Sodium 141 mmol/L (136-145)
[2017-01-17 06:10] LABS: #Basophils 0.1 thou/uL (0.0-0.2); #Eosinphils 0.2 thou/uL (0.0-0.7); #Lymphocytes 0.9 thou/uL (1.20-3.40); #Monocytes 0.9 thou/uL (0.11-0.59); #Neutrophils 6.9 thou/uL (1.40-6.50); %Basophils 1.4 % (0.0-1.0); %Eosinophils 2.8 % (0.0-10.0); %Lymphocytes 9.4 % (21.0-51.0); %Monocytes 10.2 % (0.0-10.0); %Neutrophils 76.2 % (42.0-75.0); Mean Corpuscular Hemoglobin 26.4 pg (27.0-31.0); Mean Corpuscular Volume 85.4 fl (81.0-99.0); Platelet Count 412 thou/uL (130-400); RBC Distribution Width 21.6 % (11.5-14.5)
[2017-01-17 06:12] LABS: Potassium 2.9 mmol/L (3.5-5.1)
[2017-01-17 06:18] LABS: Anisocytosis MODERATE=16-30 cells (100X) (0-5/hpf); Band 1 % (5-11); Eosinophils 2 % (0-10); Hypochromia MODERATE=16-30 cells (100X) (0-5/hpf); Lymphocytes 9 % (21-51); MDiff Complete? YES; Monocytes 4 % (0-10); Neutrophil 84 % (42-75); PLT Morphology Comment Appears Adequate; Poikilocytosis MODERATE=16-30 cells (100X) (0-5/hpf)
[2017-01-17] MEDS: Polyethylene Glycol 3350 17 GM Packet PO SCH (08:37)
[2017-01-17] MEDS: Potassium Chloride 20 MEQ TAB PO SCH ×2 (08:37→20:31)
[2017-01-17] MEDS: FLUoxetine HCl 20 MG CAP PO SCH (08:37)
[2017-01-17] MEDS: Docusate 100 MG CAP PO SCH ×2 (08:37→20:31)
[2017-01-17] MEDS: Metoprolol Tartrate 25 MG TAB PO SCH ×2 (08:37→20:32)
[2017-01-17] MEDS: Furosemide 80 MG TAB PO SCH ×2 (08:37→14:04)
[2017-01-17] MEDS: DOFETILIDE PO SCH ×2 (08:38→20:33)
--- NOTE | 2017-01-17 15:11 | PRG ---
DATE OF SERVICE: 01/17/2017 SUBJECTIVE: The patient says she is doing good today. Yesterday, she sat up for a long time and pulliam d increased swelling in her legs, particularly the right, today it is better. Leg was not hurting, her ankle actually has been doing better. She has had no shortness of breath. OBJECTIVE: GENERAL: The patient is alert and appears very comfortable and in no distress. VITAL SIGNS: Show temperature 97.6, pulse 78, respirations 20, O2 sat 95% on 3 liters, blood pressu re 128/58. Her weight is down to 161. LUNGS: Clear. There is still a pleural rub in the right upper anterior chest. EXTREMITIES: There is 1+ edema of the right leg, trace of the left, calf is nontender. ASSESSMENT: 1. Severe generalized weakness and deconditioning. A. Chronic weakness secondary to her severe comorbidities that acutely exacerbated with recent hosp italization from 12/30/2016 until 01/06/2017. B. Presenting here with inability to walk or even sit up in a chair due to the marked increased sev ere weakness. C. Complicated by marked decline in her functional capabilities. D. Marked improvement as of 01/17/2017. 2. Recent hospitalization at [facility] from 12/30/2016 to 01/06/2017 for acute on chron ic diastolic congestive heart failure with large right-sided pleural effusion requiring thoracentesi s of 1000 mL of transudate, right middle and lower lobe pneumonia, syncope and chronic atrial fibril lation. 3. Chronic atrial fibrillation. A. Status post electrocardioversion with recurrence. B. Status post multiple ablations with recurrence. She required pacemaker for prevention of sympto matic bradycardia and medication for controlling the rapid rate. C. Status post Watchman procedure, 02/03/2016. D. Now in chronic atrial fibrillation with rate control. 4. Chronic diastolic heart failure. A. Recent acute exacerbation during hospitalization of 01/06/2017. B. No recurrence and no evidence of acute congestive heart failure as of 01/17/2017. C. Present weight down at her baseline at 161 as of 01/17/2017. 5. Severe pulmonary hypertension. A. Complicated by chronic hypoxemia. B. Complicated by severe enlargement of the right ventricle with severe tricuspid regurgitation. 6 . Chronic hypoxic respiratory failure. A. 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 B. Required continue supplemental O2, usually at 2-3 liters per minute. 7. Hypertension. 8. Chronic kidney disease stage 3. 9. Anemia of chronic illness. 10. Depression, controlled. 11. Hypercholesterolemia. 12. Mitral regurgitation. 13. Right middle and lower lobe pneumonia. A. Clinically resolved. B. Completed a 10-day course of oral Ceftin. 14. Venous insufficiency. A. Recent increased edema in the legs secondary to longer periods of sitting up. 15. Recent fall prior to hospitalization resulting laceration to the right temporal area that was s utured and is healed and sutures removed and spurring of the right ankle involving the anterior talo fibular ligament, improving. 16. Pleural rub over the right upper anterior chest that is still present, but decreasing. PLAN: Continue present care. Continue physical therapy. We will start the patient on knee high decker pport hose and elevation of the legs.
[2017-01-17] MEDS: Atorvastatin Calcium 10 MG TAB PO SCH (20:31)
[2017-01-18] MEDS: DOFETILIDE PO SCH ×2 (08:43→20:12)
[2017-01-18] MEDS: Furosemide 80 MG TAB PO SCH ×2 (08:44→13:33)
[2017-01-18] MEDS: Potassium Chloride 20 MEQ TAB PO SCH ×2 (08:44→20:11)
[2017-01-18] MEDS: Metoprolol Tartrate 25 MG TAB PO SCH ×2 (08:44→20:10)
[2017-01-18] MEDS: FLUoxetine HCl 20 MG CAP PO SCH (08:44)
[2017-01-18] MEDS: Polyethylene Glycol 3350 17 GM Packet PO SCH (08:45)
[2017-01-18] MEDS: Docusate 100 MG CAP PO SCH ×2 (08:45→20:11)
[2017-01-18] MEDS: Atorvastatin Calcium 10 MG TAB PO SCH (20:11)
[2017-01-19] MEDS: Polyethylene Glycol 3350 17 GM Packet PO SCH (08:48)
[2017-01-19] MEDS: DOFETILIDE PO SCH ×2 (08:48→20:04)
[2017-01-19] MEDS: Metoprolol Tartrate 25 MG TAB PO SCH ×2 (08:49→20:07)
[2017-01-19] MEDS: Potassium Chloride 20 MEQ TAB PO SCH ×2 (08:50→20:03)
[2017-01-19] MEDS: Docusate 100 MG CAP PO SCH ×2 (08:50→20:03)
[2017-01-19] MEDS: Furosemide 80 MG TAB PO SCH ×2 (08:50→13:47)
[2017-01-19] MEDS: FLUoxetine HCl 20 MG CAP PO SCH (08:53)
--- NOTE | 2017-01-19 09:04 | PRG ---
DATE OF SERVICE: 01/19/2017 SUBJECTIVE: The patient states she is able to walk a little further. She is tolerating sitting up in a chair. The swelling in her legs seem to be better. She is wearing her walking boot on the rig ht leg when she is up due to the sprained ankle, but this is improving. OBJECTIVE: GENERAL APPEARANCE: The patient is sitting on the side of the bed. She is alert, oriented x3, appe ars very comfortable, in no distress. VITAL SIGNS: Temperature 97.9, pulse 74, respirations 20, O2 saturation 94% on 3-1/2 liters, blood pressure 116/58. Her weight is stable at 163. LUNGS: Clear. There is still a mild pleural rub in the right upper anterior chest. HEART: Regular rate. EXTREMITIES: Just trace edema. Patient wearing a walking boot on the right. ASSESSMENT: 1. Severe generalized weakness and deconditioning. A. Chronic weakness secondary to the severe comorbidities and hypoxemia with acute exacerbation wit h recent hospitalization from 01/30/2017 till 02/06/2017. B. Presently here with inability to walk or even sit up in a chair due to the marked increase sever e weakness with recent hospitalization on her admission here. C. Complicated by marked decline in her functional capabilities. D. Continued improvement where she is sitting up and walking a little further each day as of 2016. 2. Recent hospitalization at [facility] from 12/30/2016 till 01/06/2017 for acute on chr onic diastolic congestive heart failure with large right-sided pleural effusion requiring thoracente sis of 1000 mL of a transudate, right middle lobe pneumonia, syncope, and chronic atrial fibrillatio n. 3. Chronic atrial fibrillation. A. Status post electrocardioversion with recurrence. B. Status post multiple ablations with recurrence. She requires pacemaker for prevention of sympto matic bradycardia and medication controlled with rapid rate. C. Status post Watchman procedure on 02/03/2016. D. Now in chronic atrial fibrillation with rate controlled. 4. Chronic diastolic heart failure. A. No recurrence and no evidence of acute congestive heart failure as on 01/17/2017. 5. Severe pulmonary hypertension. A. Complicated by chronic hypoxemia. B. Complicated by severe enlargement of right ventricle with severe tricuspid regurgitation. 6. Chronic hypoxic respiratory failure. A. 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 B. Requires continuous supplemental O2 at 2-3 liters. 7. Hypertension. 8. Chronic kidney disease stage 3. 9. Anemia of chronic illness. 10. Depression, controlled. 11. Hypercholesterolemia. 12. Mitral regurgitation. 13. Right middle and lower lobe pneumonia. A. Clinically resolved. B. Completed 10-day course of Ceftin. 14. Venous insufficiency. 15. Recent fall resulting laceration in right temporal area that is healed and sprain of the right ankle that is improving. 16. Pleural rub gradually decreasing. PLAN: Continue present care. Continue physical therapy.
[2017-01-19] MEDS: Clotrimazole 1% Cream 15 GM TUBE TOP SCH (20:01)
[2017-01-19] MEDS: Atorvastatin Calcium 10 MG TAB PO SCH (20:02)
[2017-01-20] MEDS: Docusate 100 MG CAP PO SCH ×2 (08:25→20:36)
[2017-01-20] MEDS: Potassium Chloride 20 MEQ TAB PO SCH ×3 (08:25→16:58)
[2017-01-20] MEDS: Metoprolol Tartrate 25 MG TAB PO SCH ×2 (08:25→20:37)
[2017-01-20] MEDS: Clotrimazole 1% Cream 15 GM TUBE TOP SCH ×2 (08:26→20:41)
[2017-01-20] MEDS: DOFETILIDE PO SCH ×2 (08:26→20:37)
[2017-01-20] MEDS: Furosemide 80 MG TAB PO SCH ×2 (08:26→14:42)
[2017-01-20] MEDS: FLUoxetine HCl 20 MG CAP PO SCH (08:26)
[2017-01-20] MEDS: Polyethylene Glycol 3350 17 GM Packet PO SCH (08:26)
[2017-01-20] MEDS ORDERED: Potassium Chloride 20 MEQ TAB PO SCH (09:22)
--- NOTE | 2017-01-20 09:29 | PRG ---
DATE OF SERVICE: 01/20/2017 SUBJECTIVE: The patient said she is feeling good today. Yesterday she said she did not feel as wel l. The patient said yesterday she was up sitting on the commode and had to strain a little bit, zaynab d she got very weak and felt like she was having one of her white out spells that she has at home. Usually these are episodes of orthostatic hypotension. The patient said the nurses helped her back to bed and when she laid down pretty quickly she started feeling better. Yesterday her pressure simeon pped to 89/53. OBJECTIVE: The patient is lying in bed, is alert and appears very comfortable, in no distress. Tem p 97.5, pulse 70, respirations 20, O2 sat 91% on 3-1/2 liters, blood pressure 117/57. Her weight is stable at 163. Her urinary output was 1100 over the last 24 hours. Lungs are clear. She still pulliam s pleural rub over the right anterior chest. Heart, regular rate. Extremities, no edema. ASSESSMENT: 1. Severe generalized weakness and deconditioning. A. Chronic weakness secondary to the severe comorbidities and hypoxemia with acute exacerbation sec ondary to recent hospitalization from 12/30/2016 to 01/06/2017. B. Presenting here with inability to walk or even sit up in a chair due to the marked increased radha re weakness from recent hospitalization. C. Complicated by marked decline in functional capabilities. D. Continued improvement as of 01/20/2017. 2. Recent hospitalization at [facility] from 12/30/2016 until 01/06/2017 for acute on ch ronic diastolic congestive heart failure with large right-sided pleural effusion requiring thoracent esis of 1000 mL of a transudate, right middle and lower lobe pneumonia, syncope and chronic atrial f ibrillation. 3. Chronic atrial fibrillation. A. Status post electrical cardioversion with recurrence. B. Status post multiple ablations with recurrence. Requires pacemaker for prevention of symptomatic bradycardia and medications to control rate. C. Status post Watchman procedure 01/02/2017, now in chronic atrial fibrillation with rate controll ed. 4. Chronic diastolic heart failure. A. No recurrence, and no evidence of acute congestive heart failure as of 01/20/2017. 5. Severe pulmonary hypertension. A. Complicated by chronic hypoxemia. B. Complicated by severe enlargement of the right ventricle, severe tricuspid regurgitation. 6. Chronic hypoxic respiratory failure. A. Secondary to interstitial pulmonary disease with amiodarone toxicity. B. Requires continuous supplemental O2 at 2-3 liters. 7. Hypertension. 8. Chronic kidney disease stage 3. 9. Anemia of chronic illness. 10. Depression, controlled. 11. Hypercholesterolemia. 12. Mitral regurgitation. 13. Right middle and lower lobe pneumonia. A. Resolved. B. Completed a 10 day course of Ceftin. . 14. Venous insufficiency. 15. Recent fall resulting in laceration right hindu area with suturing that has healed and sprain of the right ankle that is improving. 16. Pleural rub on the right upper chest, improving. 17. Episode of near syncope secondary to orthostatic hypotension induced by the lower blood pressur e and the Valsalva maneuver with bowel movement on 01/19/2017. A. No recurrence as of 01/20/2017. PLAN: Continue present care. Will recheck electrolytes in the morning. Increase potassium to 3 ti mes a day.
[2017-01-20] MEDS: Atorvastatin Calcium 10 MG TAB PO SCH (20:38)
[2017-01-21 05:29] LABS: #Basophils 0.3 thou/uL (0.0-0.2); #Eosinphils 0.2 thou/uL (0.0-0.7); #Lymphocytes 0.8 thou/uL (1.20-3.40); #Neutrophils 7.9 thou/uL (1.40-6.50); %Basophils 2.6 % (0.0-1.0); %Eosinophils 2.4 % (0.0-10.0); %Lymphocytes 7.7 % (21.0-51.0); %Monocytes 9.6 % (0.0-10.0); %Neutrophils 77.6 % (42.0-75.0); Hemoglobin 9.3 g/dL (12.0-16.0); Mean Corpuscular HGB CONC 30.8 g/dL (32.0-36.0); Mean Corpuscular Hemoglobin 26.2 pg (27.0-31.0); Platelet Count 365 thou/uL (130-400); RBC Distribution Width 21.6 % (11.5-14.5); Red Blood Cell (RBC) Count 3.55 mill/uL (4.20-5.40); White Blood Cell (WBC) Count 10.2 thou/uL (4.8-10.8)
[2017-01-21 05:34] LABS: Anion Gap 14 mmol/L (10-20); BUN (Urea Nitrogen) 26 mg/dL (9.8-20.1); Calc. Creatinine Clearance 49 mL/min (70-130); Calcium 8.2 mg/dL (7.8-10.44); Carbon Dioxide 27 mmol/L (23-31); Chloride 103 mmol/L (98-107); Estimated GFR-MDRD 52; Glucose 115 mg/dL (83-110); Potassium 3.9 mmol/L (3.5-5.1); Sodium 140 mmol/L (136-145)
[2017-01-21] MEDS: Clotrimazole 1% Cream 15 GM TUBE TOP SCH ×2 (08:23→20:55)
[2017-01-21] MEDS: Docusate 100 MG CAP PO SCH ×2 (08:23→20:44)
[2017-01-21] MEDS: Potassium Chloride 20 MEQ TAB PO SCH (08:23)
[2017-01-21] MEDS: Metoprolol Tartrate 25 MG TAB PO SCH ×2 (08:24→20:51)
[2017-01-21] MEDS: FLUoxetine HCl 20 MG CAP PO SCH (08:24)
[2017-01-21] MEDS: Furosemide 80 MG TAB PO SCH ×2 (08:24→14:01)
[2017-01-21] MEDS: Polyethylene Glycol 3350 17 GM Packet PO SCH (08:26)
[2017-01-21] MEDS: DOFETILIDE PO SCH ×2 (08:28→20:53)
--- NOTE | 2017-01-21 10:57 | PRG ---
DATE OF SERVICE: 01/21/2017 SUBJECTIVE: The patient said she is feeling pretty good this morning. She said she had to shorten her therapy because her blood pressure began to drop, after sitting down this has resolved. When jasvir rivera was hospitalized at [facility] they had some trouble dealing with her low blood pressure. Her metol azone had been stopped, but then her pulse and atrial fibrillation rate came up and it was restarted at 6.25. She missed a dose of her Tikosyn prior to her discharge here and then she did not have a dose the first night that allowed some rapid response of her atrial fibrillation. Her Tikosyn has b een taken now on a regular basis. There has not been any problems with any rate increase. The meto prolol was increased from 6.25 b.i.d. to 12.5 mg b.i.d. She is still on her fluid pills, has not pulliam d any more of the near syncopal episodes. At home she says she frequently has these orthostatic hyp otensive episodes that she describes as a whiteout spell. OBJECTIVE: The patient is sitting up in a chair. She is alert and appears comfortable in no distre ss. Her temperature is 97.7, pulse 70, respirations 18, O2 sat 96% on 2 liters. Her blood pressure is 90/51. Her weight is 164. Her lungs are clear. Heart, regular rate. Extremities: The patien estefany has a walking boot on the left leg. Her lab shows an H\T\H is 9.3 and 30.2, WBC count 10,200 with 78% segs, 8% lymphocytes, and platelet count of 365. Sodium 140, potassium is up to 3.9, BUN 26, c reatinine 1.02, GFR 57. ASSESSMENT: 1. Severe generalized weakness and deconditioning. A. Chronic weakness secondary to her severe comorbidities and hypoxemia with acute exacerbation sec ondary to recent hospitalization from 12/30/2016 to 01/06/2017. B. Upon presentation to this hospital she was unable to walk or even sit up in a chair. C. Complicated by marked decline in her functional capabilities. D. Continued improvement as of 01/21/2017. 2. Recent hospitalization at [facility] from 12/30/2016 to 01/06/2017 for acute on clinical exercise specialist shannon diastolic congestive heart failure with a large right-sided pleural effusion requiring thoracent esis of 1000 mL of a transudate, right middle and lower lobe pneumonia, syncope and atrial fibrillat ion. 3. Chronic atrial fibrillation. A. Status post electrical cardioversion with recurrence. B. Status post multiple ablations with recurrence. Required pacemaker for prevention of symptomati c bradycardia and medicines to control rapid rates. C. Status post Watchman procedure 02/03/2016. 4. Chronic diastolic heart failure. A. No recurrence, n evidence of acute congestive heart failure as of 01/21/2017. 5. Severe pulmonary hypertension. A. Complicated by chronic hypoxemia. B. Complicated by severe enlargement of the right ventricle with severe tricuspid regurgitation. 6. Chronic hypoxic respiratory failure. A. 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 B. Requires continuous supplemental O2 at 2-3 liters. 7. Hypertension. 8. Chronic kidney disease stage 3. 9. Anemia of chronic illness, stable. 10. Depression, controlled. 11. Hypercholesterolemia. 12. Mitral regurgitation. 13. Right middle and lower lobe pneumonia. A. Resolved. B. Completed a 10 day course of Ceftin. 14. Venous insufficiency. 15. Recent fall resulting in laceration right temporal area with suturing that has healed and sprai n of the right ankle that is improving. 16. Right anterior pleural rub, improving. 17. Orthostatic hypotension. A. Complicated by near syncopal episode on 01/19/2017. PLAN: Continue physical therapy. Will try reducing the metoprolol to 6.25 mg b.i.d. We will try lo ng leg MELLO stockings to see if this will help some with venous return. We will reduce potassium to b.i.d. We will continue the Tikosyn. The patient is very sensitive to fluid overload and reduction in the furosemide, in the past she has not tolerated. Continue physical therapy.
[2017-01-21] MEDS: Atorvastatin Calcium 10 MG TAB PO SCH (20:43)
[2017-01-22] MEDS: Potassium Chloride 20 MEQ TAB PO SCH (08:31)
[2017-01-22] MEDS: Polyethylene Glycol 3350 17 GM Packet PO SCH (08:31)
[2017-01-22] MEDS: FLUoxetine HCl 20 MG CAP PO SCH (08:31)
[2017-01-22] MEDS: Furosemide 80 MG TAB PO SCH ×2 (08:31→14:05)
[2017-01-22] MEDS: Metoprolol Tartrate 25 MG TAB PO SCH ×2 (08:32→20:28)
[2017-01-22] MEDS: Docusate 100 MG CAP PO SCH ×2 (08:33→20:25)
[2017-01-22] MEDS: Clotrimazole 1% Cream 15 GM TUBE TOP SCH ×2 (08:33→20:29)
[2017-01-22] MEDS: DOFETILIDE PO SCH ×2 (08:33→20:27)
[2017-01-22] MEDS: Atorvastatin Calcium 10 MG TAB PO SCH (20:24)
[2017-01-23] MEDS: Metoprolol Tartrate 25 MG TAB PO SCH ×2 (08:21→20:31)
[2017-01-23] MEDS: Docusate 100 MG CAP PO SCH ×2 (08:21→20:24)
[2017-01-23] MEDS: DOFETILIDE PO SCH ×2 (08:22→20:32)
[2017-01-23] MEDS: Clotrimazole 1% Cream 15 GM TUBE TOP SCH ×2 (08:22→20:24)
[2017-01-23] MEDS: FLUoxetine HCl 20 MG CAP PO SCH (08:22)
[2017-01-23] MEDS: Potassium Chloride 20 MEQ TAB PO SCH (08:22)
[2017-01-23] MEDS: Furosemide 80 MG TAB PO SCH ×2 (08:22→14:00)
[2017-01-23] MEDS: Polyethylene Glycol 3350 17 GM Packet PO SCH (08:23)
--- NOTE | 2017-01-23 19:10 | PRG ---
DATE OF SERVICE: 01/23/2017 SUBJECTIVE: The patient said she is feeling good this morning, slept well. Yesterday, she just res henry more than usual. She has not had any near syncopal episodes/white out spells as she describes t hese. OBJECTIVE: The patient is sitting up on the edge of the bed, having eaten a good breakfast. She is alert and appears in no distress. Temp 98.0, pulse 69, respirations 22, O2 sat 94% on 3 liters, bl ood pressure 112/56. Her weight is stable at 165. Her lungs are clear. The patient has some pleur al rub over the right upper anterior chest, but this is less. Heart, regular rate. Extremities, no edema. ASSESSMENT: 1. Severe generalized weakness and deconditioning. A. Chronic weakness secondary to her severe comorbidities and hypoxemia with acute exacerbation secondary to recent hospitalization from 12/30/2016 to 01/06/2017. B. Upon presentation to this hospital she was unable to walk or even sit up in a chair. C. Complicated by marked decline in her functional capabilities. D. Continued improvement as of 01/23/2017. 2. Recent hospitalization at [facility] from 12/30/2016 to 01/06/2017 for acute on chrome tanner shannon diastolic congestive heart failure with a large right-sided pleural effusion requiring thoracent esis of 1000 mL of a transudate, right middle and lower lobe pneumonia, syncope and atrial fibrillati on. 3. Chronic atrial fibrillation. A. Status post electrical cardioversion with recurrence. B. Status post multiple ablations with recurrence. Required pacemaker for prevention of symptomatic bradycardia and medicines to control rapid rates. C. Status post Watchman procedure 02/03/2016. D. Rate controlled. 4. Chronic diastolic heart failure. A. No recurrence, and no evidence of acute congestive heart failure as of 01/23/2017. 5. Severe pulmonary hypertension. A. Complicated by chronic hypoxemia. B. Complicated by severe enlargement of the right ventricle with severe tricuspid regurgitation . 6. Chronic hypoxic respiratory failure. A. 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 B. Requires continuous supplemental O2 at 2-3 liters. 7. Hypertension. 8. Chronic kidney disease stage 3. 9. Anemia of chronic illness, stable. 10. Depression, controlled. 11. Hypercholesterolemia. 12. Mitral regurgitation. 13. Right middle and lower lobe pneumonia. A. Resolved. B. Completed a 10 day course of Ceftin. 14. Venous insufficiency. 15. Recent fall resulting in laceration right temporal area with suturing that has healed and sprain of the right ankle that is improving. 16. Right anterior pleural rub, improving. 17. Orthostatic hypotension. A. Complicated by near syncopal episode on 01/19/2017. B. Improved as of 01/23/2017. PLAN: Continue present care. Continue physical therapy. The patient's metoprolol has been reduced to 6.25 mg b.i.d. and this will be held if systolic blood pressure is less than 105.
[2017-01-23] MEDS: Atorvastatin Calcium 10 MG TAB PO SCH (20:24)
[2017-01-24 05:40] LABS: Anion Gap 15 mmol/L (10-20); BUN (Urea Nitrogen) 25 mg/dL (9.8-20.1); Calc. Creatinine Clearance 53 mL/min (70-130); Calcium 8.1 mg/dL (7.8-10.44); Carbon Dioxide 24 mmol/L (23-31); Chloride 104 mmol/L (98-107); Estimated GFR-MDRD 56; Glucose 105 mg/dL (83-110); Potassium 3.4 mmol/L (3.5-5.1); Sodium 140 mmol/L (136-145)
[2017-01-24 06:02] LABS: #Basophils 0.1 thou/uL (0.0-0.2); #Eosinphils 0.3 thou/uL (0.0-0.7); #Lymphocytes 1.4 thou/uL (1.20-3.40); #Neutrophils 7.4 thou/uL (1.40-6.50); %Basophils 0.9 % (0.0-1.0); %Eosinophils 3.1 % (0.0-10.0); %Lymphocytes 13.4 % (21.0-51.0); %Monocytes 9.6 % (0.0-10.0); %Neutrophils 73.1 % (42.0-75.0); Hemoglobin 9.9 g/dL (12.0-16.0); Mean Corpuscular Hemoglobin 25.8 pg (27.0-31.0); Mean Corpuscular Volume 83.3 fl (81.0-99.0); Mean Platelet Volume 5.9 fL (7.4-10.4); Platelet Count 347 thou/uL (130-400); RBC Distribution Width 21.9 % (11.5-14.5); Red Blood Cell (RBC) Count 3.82 mill/uL (4.20-5.40); White Blood Cell (WBC) Count 10.1 thou/uL (4.8-10.8)
[2017-01-24] MEDS: Metoprolol Tartrate 25 MG TAB PO SCH ×2 (09:08→20:57)
[2017-01-24] MEDS: Docusate 100 MG CAP PO SCH ×2 (09:08→20:52)
[2017-01-24] MEDS: FLUoxetine HCl 20 MG CAP PO SCH (09:09)
[2017-01-24] MEDS: Furosemide 80 MG TAB PO SCH ×2 (09:09→14:24)
[2017-01-24] MEDS: Potassium Chloride 20 MEQ TAB PO SCH (09:09)
[2017-01-24] MEDS: Clotrimazole 1% Cream 15 GM TUBE TOP SCH ×2 (09:10→20:54)
[2017-01-24] MEDS: Polyethylene Glycol 3350 17 GM Packet PO SCH (09:10)
[2017-01-24] MEDS: DOFETILIDE PO SCH ×2 (09:11→20:55)
[2017-01-24] MEDS: Atorvastatin Calcium 10 MG TAB PO SCH (20:53)
[2017-01-25] MEDS: FLUoxetine HCl 20 MG CAP PO SCH (09:04)
[2017-01-25] MEDS: Furosemide 80 MG TAB PO SCH ×2 (09:04→14:58)
[2017-01-25] MEDS: Metoprolol Tartrate 25 MG TAB PO SCH ×2 (09:04→20:32)
[2017-01-25] MEDS: Potassium Chloride 20 MEQ TAB PO SCH (09:05)
[2017-01-25] MEDS: Polyethylene Glycol 3350 17 GM Packet PO SCH (09:17)
[2017-01-25] MEDS: DOFETILIDE PO SCH ×2 (09:18→20:34)
[2017-01-25] MEDS: Docusate 100 MG CAP PO SCH ×2 (09:19→20:31)
[2017-01-25] MEDS ORDERED: Metolazone 5 MG TAB PO SCH (09:45)
[2017-01-25] MEDS: Clotrimazole 1% Cream 15 GM TUBE TOP SCH ×2 (14:58→20:33)
[2017-01-25] MEDS: Atorvastatin Calcium 10 MG TAB PO SCH (20:30)
--- NOTE | 2017-01-25 22:10 | PRG ---
DATE OF SERVICE: 01/25/2017 SUBJECTIVE: The patient said that she is doing okay. She did not sleep as well. She just was worr floridalma some last night. She had her weight is up to 169. Her breathing is okay. She does have a lit tle bit more swelling. OBJECTIVE: GENERAL: The patient is lying in bed, is alert and appears in no acute distress. VITAL SIGNS: Her temp 98.3, pulse 71, respirations 20, O2 saturation 90% on 4 liters, blood pressur e 103/53. Her weight is up to 169 from a baseline of 164 to 165. LUNGS: Clear except for the rub over the right anterior upper chest, basilar lung clear. HEART: R egular rate. EXTREMITIES: Mild edema. ASSESSMENT: 1. Severe generalized weakness and deconditioning. A. Chronic weakness secondary to her severe comorbidities and hypoxemia with acute exacerbation secondary to recent hospitalization from 12/30/2016 to 01/06/2017. B. Upon presentation to this hospital she was unable to walk or even sit up in a chair. C. Complicated by marked decline in her functional capabilities. D. Gradual improvement as of 01/25/2017. 2. Recent hospitalization at [facility] from 12/30/2016 to 01/06/2017 for acute on library clerk talking books shannon diastolic congestive heart failure with a large right-sided pleural effusion requiring thoracent esis of 1000 mL of a transudate, right middle and lower lobe pneumonia, syncope and atrial fibrillati on. 3. Chronic atrial fibrillation. A. Status post electrical cardioversion with recurrence. B. Status post multiple ablations with recurrence. Required pacemaker for prevention of symptomatic bradycardia and medicines to control rapid rates. C. Status post Watchman procedure 02/03/2016. D. Rate controlled. 4. Chronic diastolic heart failure. A. No recurrence. No evidence of acute congestive heart failure as of 01/25/2017. B. Weight has increased over the last few days 5 pounds with some increased peripheral edema, i ndicating some fluid overload, which for her quickly leads to acute congestive heart failure as of 04/2017. 5. Severe pulmonary hypertension. A. Complicated by chronic hypoxemia. B. Complicated by severe enlargement of the right ventricle with severe tricuspid regurgitation . 6. Chronic hypoxic respiratory failure. A. 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 B. Requires continuous supplemental O2 at 2-3 liters. 7. Hypertension. 8. Chronic kidney disease stage 3. 9. Anemia of chronic illness, stable. 10. Depression, controlled. 11. Hypercholesterolemia. 12. Mitral regurgitation. 13. Right middle and lower lobe pneumonia. A. Resolved. B. Completed a 10 day course of Ceftin. 14. Venous insufficiency. 15. Recent fall resulting in laceration right temporal area with suturing that has healed and sprain of the right ankle that is improving. 16. Right anterior pleural rub, improving. 17. Orthostatic hypotension. A. Complicated by near syncopal episode on 01/19/2017. B. Improved as of 01/23/2017. PLAN: 1. We will continue present care. 2. We will give patient a dose of Zaroxolyn 5 mg p.o. today. Usually, the patient has a very excel lent synergistic response along with the furosemide and had excellent diuresis. We will recheck richy ctrolytes tomorrow.
[2017-01-26 06:32] LABS: Anion Gap 14 mmol/L (10-20); BUN (Urea Nitrogen) 21 mg/dL (9.8-20.1); Calc. Creatinine Clearance 60 mL/min (70-130); Calcium 8.1 mg/dL (7.8-10.44); Carbon Dioxide 27 mmol/L (23-31); Chloride 100 mmol/L (98-107); Estimated GFR-MDRD 66; Glucose 106 mg/dL (83-110); Sodium 138 mmol/L (136-145)
[2017-01-26 06:47] LABS: Potassium 2.6 mmol/L (3.5-5.1)
[2017-01-26] MEDS: Docusate 100 MG CAP PO SCH ×2 (07:56→20:12)
[2017-01-26] MEDS: FLUoxetine HCl 20 MG CAP PO SCH (07:56)
[2017-01-26] MEDS: Metoprolol Tartrate 25 MG TAB PO SCH ×2 (07:56→20:14)
[2017-01-26] MEDS: Polyethylene Glycol 3350 17 GM Packet PO SCH ×2 (07:57→07:59)
[2017-01-26] MEDS: Furosemide 80 MG TAB PO SCH ×2 (07:57→15:08)
[2017-01-26] MEDS: DOFETILIDE PO SCH ×2 (07:57→20:16)
[2017-01-26] MEDS: Potassium Chloride 20 MEQ TAB PO SCH ×3 (07:57→20:13)
--- NOTE | 2017-01-26 08:39 | PRG ---
DATE OF SERVICE: 01/26/2017 SUBJECTIVE: The patient states she feels a lot better today. The patient said she urinated a lot y esterday after taking the Zaroxolyn 5 mg in response to approximately 5-pound weight gain. The beatriz ent said that she was able to walk better. She said she urinated frequently. Her breathing is a lo t better. Overall, she feels better. OBJECTIVE: GENERAL APPEARANCE: The patient is lying in bed, is smiling, looks very comfortable, is conversant and appears in no distress. VITAL SIGNS: Her temperature last evening was 98.2, pulse 91, respirations 20, O2 sat 96% on room a ir, blood pressure is 117/57 morning. Vital signs are pending. Her weight down to 164, 5 pound simeon p. LUNGS: Clear except for the pleural rub over the right upper anterior chest. HEART: Regular rate. EXTREMITIES: No edema. LABORATORY DATA: Showed sodium of 138, potassium dropped to 2.6, BUN is 21, creatinine 0.83. GFR i s up to 66, glucose 106. ASSESSMENT: 1. Severe generalized weakness and deconditioning. A. Chronic weakness secondary to her severe comorbidities and hypoxemia with acute exacerbation secondary to recent hospitalization from 12/30/2016 to 01/06/2017. B. Upon presentation to this hospital she was unable to walk or even sit up in a chair. C. Complicated by marked decline in her functional capabilities. D. Continued gradual improvement as of 01/26/2017. 2. Recent [place] 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 3. Chronic atrial fibrillation. A. Status post electrical cardioversion with recurrence. B. Status post multiple ablations with recurrence. Required pacemaker for prevention of symptomatic bradycardia and medicines to control rapid rates. C. Status post Watchman procedure 02/03/2016. D. Rate controlled. 4. Chronic diastolic heart failure. A. No recurrence. No evidence of acute congestive heart failure as of 01/26/2017. B. The patient received Zaroxolyn 5 mg for a 5-pound weight gain on 01/25/2017 and had a 5-poun d weight loss and feeling much better as of 01/26/2017. 5. Severe pulmonary hypertension. A. Complicated by chronic hypoxemia. B. Complicated by severe enlargement of the right ventricle with severe tricuspid regurgitation . 6. Chronic hypoxic respiratory failure. A. 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 B. Requires continuous supplemental O2 at 2-3 liters. 7. Hypertension. 8. Chronic kidney disease stage 3. 9. Anemia of chronic illness, stable. 10. Depression, controlled. 11. Hypercholesterolemia. 12. Mitral regurgitation. 13. Right middle and lower lobe pneumonia. A. Resolved. B. Completed a 10 day course of Ceftin. 14. Venous insufficiency. 15. Recent fall resulting in laceration right temporal area with suturing that has healed and sprain of the right ankle that is improving. 16. Right anterior pleural rub, improving. 17. Orthostatic hypotension. A. Complicated by near syncopal episode on 01/19/2017. B. Improved as of 01/26/2017. PLAN: Overall, the patient looks better. Her weight is back down to her baseline of around 164. H er breathing is back to her normal. Her swelling is resolved. Her blood pressure and pulse are bet ter. Renal function is better. We will continue present care. Her metoprolol is at a low dose of 6.25 mg b.i.d. and this occasionally has to be held in response to a lower pulse or lower systolic b lood pressure. The patient has a very significant hypokalemia with potassium of 2.6. Her potassium has been increased to KCl 20 mEq t.i.d. We will recheck electrolytes in the morning.
[2017-01-26] MEDS: Clotrimazole 1% Cream 15 GM TUBE TOP SCH ×2 (09:00→20:16)
[2017-01-26] MEDS: Atorvastatin Calcium 10 MG TAB PO SCH (20:11)
[2017-01-27 05:37] LABS: Anion Gap 16 mmol/L (10-20); BUN (Urea Nitrogen) 23 mg/dL (9.8-20.1); Calc. Creatinine Clearance 48 mL/min (70-130); Calcium 8.6 mg/dL (7.8-10.44); Carbon Dioxide 29 mmol/L (23-31); Chloride 97 mmol/L (98-107); Estimated GFR-MDRD 51; Glucose 112 mg/dL (83-110); Sodium 139 mmol/L (136-145)
[2017-01-27 05:42] LABS: Potassium 2.9 mmol/L (3.5-5.1)
[2017-01-27] MEDS: Docusate 100 MG CAP PO SCH ×2 (09:47→20:51)
[2017-01-27] MEDS: Polyethylene Glycol 3350 17 GM Packet PO SCH (09:47)
[2017-01-27] MEDS: Potassium Chloride 20 MEQ TAB PO SCH ×3 (09:47→20:48)
[2017-01-27] MEDS: Metoprolol Tartrate 25 MG TAB PO SCH ×2 (09:48→20:49)
[2017-01-27] MEDS: FLUoxetine HCl 20 MG CAP PO SCH (09:49)
[2017-01-27] MEDS: DOFETILIDE PO SCH ×2 (09:49→20:48)
[2017-01-27] MEDS: Furosemide 80 MG TAB PO SCH ×2 (09:49→14:51)
[2017-01-27] MEDS: Clotrimazole 1% Cream 15 GM TUBE TOP SCH ×2 (09:50→20:51)
--- NOTE | 2017-01-27 16:03 | RAD ---
TWO VIEW CHEST: 01/27/17 HISTORY: CHF. COMPARISON: 01/04/17. Cardiomegaly. Vascular engorgement and mild interstitial congestion. Bilateral effusions. Bibasilar atelectasis. Dual lead pacemaker leads are unchanged. IMPRESSION: Congestive changes as described. POS: LULY
[2017-01-27] MEDS: Atorvastatin Calcium 10 MG TAB PO SCH (20:49)
--- NOTE | 2017-01-28 02:14 | PRG ---
DATE OF SERVICE: 01/27/2017 SUBJECTIVE: The patient said she had a good night. She is feeling very good today. Her breathing has been good. She has been walking further and her weight has dropped a little more. Her right an kle is feeling better. She is walking some without the walking boot, but when she has some further she feels a little more secure in this. OBJECTIVE: GENERAL: The patient is sitting up in a bedside chair. She is fine, looks very happy, in no distre ss. VITAL SIGNS: Her temperature is 97.7, pulse 77, respirations are 20, O2 sat 95% on 3 liters and blo od pressure 104/62. Her weight is 162. LUNGS: Clear other than that pleural rub in the right upper anterior chest. HEART: Regular rate. EXTREMITIES: No edema. Right ankle, the patient has some mild tenderness over the anterior talofib ular ligament. Just trace swelling. There is no bruising. The patient has good inversion, eversio n without pain. Ankle looks much better. LABORATORY DATA: Sodium 139, potassium is up to 2.9 from a low of 2.6. Patient's potassium had bee n increased to 20 mEq t.i.d. yesterday. Her BUN is 23, creatinine is 1.04, GFR is 51 and glucose is 112. ASSESSMENT: 1. Severe generalized weakness and deconditioning. A. Chronic weakness secondary to her severe comorbidities and hypoxemia with acute exacerbation secondary to recent hospitalization from 12/30/2016 to 01/06/2017. B. Upon presentation to this hospital she was unable to walk or even sit up in a chair. C. Complicated by marked decline in her functional capabilities. D. Continued gradual improvement as of 01/27/2017. 2. Recent hospitalization at [facility] [place] from 12/30/2016 to 01/06/2017 for acute on barytes grinder shannon diastolic congestive heart failure with a large right-sided pleural effusion requiring thoracent esis of 1000 mL of a transudate, right middle and lower lobe pneumonia, syncope and atrial fibrillati on. 3. Chronic atrial fibrillation. A. Status post electrical cardioversion with recurrence. B. Status post multiple ablations with recurrence. Required pacemaker for prevention of symptomatic bradycardia and medicines to control rapid rates. C. Status post Watchman procedure 02/03/2016. D. Rate controlled. 4. Chronic diastolic heart failure. A. No evidence of acute congestive heart failure as of 01/27/2017. Her weight is down to 162 a fter increasing to 169 on 01/25/2017, for which she received 5 mg of Zaroxolyn with excellent diu resis. B. The patient received Zaroxolyn 5 mg for a 5-pound weight gain on 01/25/2017 and had a 5-poun d weight loss and feeling much better as of 01/26/2017. 5. Severe pulmonary hypertension. A. Complicated by chronic hypoxemia. B. Complicated by severe enlargement of the right ventricle with severe tricuspid regurgitation . 6. Chronic hypoxic respiratory failure. A. 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 B. Requires continuous supplemental O2 at 2-3 liters. 7. Hypertension. 8. Chronic kidney disease stage 3. 9. Anemia of chronic illness, stable. 10. Depression, controlled. 11. Hypercholesterolemia. 12. Mitral regurgitation. 13. Right middle and lower lobe pneumonia. A. Resolved. B. Completed a 10 day course of Ceftin. 14. Venous insufficiency. 15. Recent fall resulting in laceration right temporal area with suturing that has healed and sprain of the right ankle that is improving. 16. Right anterior pleural rub, improving. 17. Orthostatic hypotension. A. Complicated by near syncopal episode on 01/19/2017. B. Improved as of 01/27/2017. PLAN: We will continue present care. We will repeat electrolytes in the morning. Continue the KCl 20 mEq t.i.d. Repeat chest x-ray to ensure resolution of the pneumonia.
[2017-01-28 05:38] LABS: Anion Gap 13 mmol/L (10-20); BUN (Urea Nitrogen) 25 mg/dL (9.8-20.1); Calc. Creatinine Clearance 53 mL/min (70-130); Calcium 8.1 mg/dL (7.8-10.44); Carbon Dioxide 29 mmol/L (23-31); Chloride 100 mmol/L (98-107); Estimated GFR-MDRD 56; Glucose 109 mg/dL (83-110); Potassium 3.2 mmol/L (3.5-5.1); Sodium 139 mmol/L (136-145)
[2017-01-28] MEDS: Polyethylene Glycol 3350 17 GM Packet PO SCH (08:55)
[2017-01-28] MEDS: DOFETILIDE PO SCH ×2 (08:55→20:54)
[2017-01-28] MEDS: Potassium Chloride 20 MEQ TAB PO SCH ×3 (08:57→20:51)
[2017-01-28] MEDS: Metoprolol Tartrate 25 MG TAB PO SCH ×2 (08:58→20:54)
[2017-01-28] MEDS: Docusate 100 MG CAP PO SCH ×2 (08:58→20:51)
[2017-01-28] MEDS: FLUoxetine HCl 20 MG CAP PO SCH (08:58)
[2017-01-28] MEDS: Furosemide 80 MG TAB PO SCH ×2 (08:58→13:55)
[2017-01-28] MEDS: Clotrimazole 1% Cream 15 GM TUBE TOP SCH ×2 (09:01→20:53)
[2017-01-28] MEDS: Atorvastatin Calcium 10 MG TAB PO SCH (20:51)
[2017-01-29] MEDS: FLUoxetine HCl 20 MG CAP PO SCH (08:29)
[2017-01-29] MEDS: Metoprolol Tartrate 25 MG TAB PO SCH ×2 (08:29→20:19)
[2017-01-29] MEDS: Docusate 100 MG CAP PO SCH ×2 (08:29→20:18)
[2017-01-29] MEDS: Furosemide 80 MG TAB PO SCH ×2 (08:29→14:18)
[2017-01-29] MEDS: DOFETILIDE PO SCH ×2 (08:30→20:23)
[2017-01-29] MEDS: Potassium Chloride 20 MEQ TAB PO SCH ×3 (08:31→20:18)
[2017-01-29] MEDS: Polyethylene Glycol 3350 17 GM Packet PO SCH (08:33)
[2017-01-29] MEDS: Clotrimazole 1% Cream 15 GM TUBE TOP SCH ×2 (08:33→20:20)
--- NOTE | 2017-01-29 15:59 | PRG ---
DATE OF SERVICE: 01/29/2017 SUBJECTIVE: This morning, the patient said she is feeling good. She had a good night. Yesterday, she had a little episode where she had a little lie down, her blood pressure was low. After she lie d down this improved. OBJECTIVE: The patient is sitting on the side of the bed. She is alert, talkative, and appears in no distress. Her daughter, Heidi Pitts is here visiting. Her vital signs show a temperature of 9 7.1, pulse 78, respirations 18, O2 sat 94% on 2 liters. Her blood pressure 116/56. Her weight is 1 64, which is her usual baseline. Her lungs were clear. There are decreased breath sounds at the ri ght posterior base and there is still pleural rub over the right upper anterior chest. Heart has a regular rate. Extremities: No edema. Her lab shows from yesterday's sodium 139, potassium is up to 3.2, BUN is 25, creatinine 0.95, gluco se is109. Chest x-ray that was done on the , showed cardiomegaly, pulmonary vascular congestion with mild interstitial congestion, bilateral effusions, right larger than the left and a dual lead pacemaker. ASSESSMENT: 1. Severe generalized weakness and deconditioning. A. Chronic weakness secondary to her severe comorbidities and hypoxemia with acute exacerbation secondary to recent hospitalization from 12/30/2016 to 01/06/2017. B. Upon presentation to this hospital she was unable to walk or even sit up in a chair. C. Complicated by marked decline in her functional capabilities. D. Slow gradual improvement as of 01/29/2017. Progress hampered by the episodes of orthostatic hypotension. 2. Recent hospitalization at [facility] from 12/30/2016 to 01/06/2017 for acute on dowel pointer shannon diastolic congestive heart failure with a large right-sided pleural effusion requiring thoracent esis of 1000 mL of a transudate, right middle and lower lobe pneumonia, syncope and atrial fibrillati on. 3. Chronic atrial fibrillation. A. Status post electrical cardioversion with recurrence. B. Status post multiple ablations with recurrence. Required pacemaker for prevention of symptomatic bradycardia and medicines to control rapid rates. C. Status post Watchman procedure 02/03/2016. D. Rate controlled. 4. Chronic diastolic heart failure. A. The patient has a chronic congestive failure with cardiomegaly, bilateral pleural effusions, right greater than left. B. Presently stable as of 01/29/2017 with no acute on chronic congestive heart failure. C. Managed with 1800 mL fluid restriction, the Lasix, and periodic doses of Zaroxolyn. 5. Severe pulmonary hypertension. A. Complicated by chronic hypoxemia. B. Complicated by severe enlargement of the right ventricle with severe tricuspid regurgitation . 6. Chronic hypoxic respiratory failure. A. 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 B. Requires continuous supplemental O2 at 2-3 liters. 7. Hypertension. 8. Chronic kidney disease stage 3. 9. Anemia of chronic illness, stable. 10. Depression, controlled. 11. Hypercholesterolemia. 12. Mitral regurgitation. 13. Right middle and lower lobe pneumonia. A. Resolved. B. Completed a 10 day course of Ceftin. 14. Venous insufficiency. 15. Recent fall resulting in laceration right temporal area with suturing that has healed and sprain of the right ankle that is improving. 16. Right anterior pleural rub, improving. 17. Orthostatic hypotension. A. Complicated by near syncopal episodes that she describes as white out spells. B. Stable as of 01/29/2017. PLAN: The patient's condition right now is pretty stable. The patient is in a very precarious stat e where she has chronic congestive heart failure and goes into acute congestive heart failure, usual ly manifest by increased shortness of breath, drop in her O2 saturation and increase in her weight. This has been managed chronically with the 1800 mL fluid restriction. The periodic use of the Zaro xolyn for weight gain of over 3 pounds and continued low dose of the metoprolol and continued dosing of Lasix. As a result of this, the patient does have episodes where her blood pressure is low and she develops orthostatic symptoms what she describes as white out spells. We will continue to work with patient with therapy and use of the knee high support hose. We will also have the nurses work with patient where she can learn to monitor her blood pressure at home and follow up parameters when to take the Lasix and metoprolol and when to take the extra doses of Zaroxolyn. We will hold metop rolol and Lasix if her systolic pressures less than 105. We will continue daily weight and give thi s Zaroxolyn 5 mg daily if her weight is more than 3 pounds above her baseline of 164 or she has deve loped increasing shortness of breath or drop in her O2 saturation. Patient will try a wrist automat ic blood pressure cuff because of the ease of operation. Nurses will compare this with the readings , they get to make sure that it is reasonably accurate.
[2017-01-29] MEDS: Atorvastatin Calcium 10 MG TAB PO SCH (20:19)
[2017-01-30] MEDS: Polyethylene Glycol 3350 17 GM Packet PO SCH (08:37)
[2017-01-30] MEDS: DOFETILIDE PO SCH ×2 (08:37→21:16)
[2017-01-30] MEDS: FLUoxetine HCl 20 MG CAP PO SCH (08:38)
[2017-01-30] MEDS: Potassium Chloride 20 MEQ TAB PO SCH ×3 (08:38→21:16)
[2017-01-30] MEDS: Docusate 100 MG CAP PO SCH ×2 (08:38→21:14)
[2017-01-30] MEDS: Furosemide 80 MG TAB PO SCH ×2 (08:38→13:59)
[2017-01-30] MEDS: Metoprolol Tartrate 25 MG TAB PO SCH ×2 (08:39→21:14)
[2017-01-30] MEDS: Clotrimazole 1% Cream 15 GM TUBE TOP SCH ×2 (08:41→21:14)
[2017-01-30] MEDS: Atorvastatin Calcium 10 MG TAB PO SCH (21:13)
[2017-01-31 05:26] LABS: Anion Gap 10 mmol/L (10-20); BUN (Urea Nitrogen) 27 mg/dL (9.8-20.1); Calc. Creatinine Clearance 52 mL/min (70-130); Calcium 8.3 mg/dL (7.8-10.44); Carbon Dioxide 27 mmol/L (23-31); Chloride 104 mmol/L (98-107); Estimated GFR-MDRD 54; Glucose 108 mg/dL (83-110); Potassium 4.3 mmol/L (3.5-5.1); Sodium 137 mmol/L (136-145)
[2017-01-31 05:47] LABS: #Basophils 0.1 thou/uL (0.0-0.2); #Eosinphils 0.2 thou/uL (0.0-0.7); #Lymphocytes 1.2 thou/uL (1.20-3.40); #Monocytes 0.9 thou/uL (0.11-0.59); #Neutrophils 5.8 thou/uL (1.40-6.50); %Basophils 0.9 % (0.0-1.0); %Eosinophils 2.5 % (0.0-10.0); %Lymphocytes 14.5 % (21.0-51.0); %Monocytes 10.4 % (0.0-10.0); %Neutrophils 71.7 % (42.0-75.0); Anisocytosis MODERATE=16-30 cells (100X) (0-5/hpf); Hemoglobin 9.2 g/dL (12.0-16.0); Hypochromia MODERATE=16-30 cells (100X) (0-5/hpf); MDiff Complete? YES; Macrocytosis SLIGHT = 6-15 cells (100X) (0-5/hpf); Mean Corpuscular HGB CONC 31.6 g/dL (32.0-36.0); Mean Corpuscular Hemoglobin 25.7 pg (27.0-31.0); Mean Corpuscular Volume 81.3 fl (81.0-99.0); Microcytosis SLIGHT = 6-15 cells (100X) (0-5/hpf); PLT Morphology Comment Appears Adequate; Platelet Count 287 thou/uL (130-400); Poikilocytosis MODERATE=16-30 cells (100X) (0-5/hpf); RBC Distribution Width 22.3 % (11.5-14.5); RBC Morphology ABNORMAL; Red Blood Cell (RBC) Count 3.59 mill/uL (4.20-5.40); White Blood Cell (WBC) Count 8.1 thou/uL (4.8-10.8)
[2017-01-31] MEDS: FLUoxetine HCl 20 MG CAP PO SCH (08:31)
[2017-01-31] MEDS: Docusate 100 MG CAP PO SCH ×2 (08:31→21:13)
[2017-01-31] MEDS: Clotrimazole 1% Cream 15 GM TUBE TOP SCH ×2 (08:32→21:14)
[2017-01-31] MEDS: DOFETILIDE PO SCH ×2 (08:32→21:15)
[2017-01-31] MEDS: Furosemide 80 MG TAB PO SCH ×2 (08:32→13:34)
[2017-01-31] MEDS: Metoprolol Tartrate 25 MG TAB PO SCH ×2 (08:32→21:14)
[2017-01-31] MEDS: Polyethylene Glycol 3350 17 GM Packet PO SCH (08:33)
[2017-01-31] MEDS: Potassium Chloride 20 MEQ TAB PO SCH (08:35)
--- NOTE | 2017-01-31 08:37 | PRG ---
DATE OF SERVICE: 01/31/2017 SUBJECTIVE: The patient said she is feeling good this morning. She is not short of breath. She sl ept good. Yesterday afternoon when she was up in the bathroom she felt one of her white out spells coming and told the nurses that were helping her to the bathroom that she needed to get to bed quick . Before they could reach the bed she just was sinking down and momentarily passed out, appeared ve ry cyanotic in the periphery. Initially blood pressure was unobtainable. After lying down and putt ing her oxygen on at 5 liters she was awake, alert, and pulse was up to 84. O2 sat was 98%, it was 96% on 5 liters and blood pressure was up to 112/54. The patient had no more of these episodes. Th morning she is feeling fine. OBJECTIVE: The patient is lying in bed, alert, talkative, and appears comfortable and in no distres s. Temp 98.2, pulse 74, respirations 20, O2 sat 91, blood pressure 98/55. Lungs are clear. Heart, regular rate. Extremities: No edema. H\T\H 9.2 and 29.2, white cell count 8100 with 72% segs, 15% lymphocytes, and a platelet count of 28 7,000. Her sodium is 137, potassium is up to 4.3, BUN 27, creatinine 0.98, GFR 54, glucose 108. ASSESSMENT: 1. Severe generalized weakness and deconditioning. A. Chronic weakness secondary to her severe comorbidities and hypoxemia with acute exacerbation secondary to recent hospitalization from 12/30/2016 to 01/06/2017. B. Upon presentation to this hospital she was unable to walk or even sit up in a chair. C. Complicated by marked decline in her functional capabilities. D. Slow improvement as of 01/31/2017. Progress hampered by the episodes of orthostatic hypoten shayla. 2. 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 3. Chronic atrial fibrillation. A. Status post electrical cardioversion with recurrence. B. Status post multiple ablations with recurrence. Required pacemaker for prevention of symptomatic bradycardia and medicines to control rapid rates. C. Status post Watchman procedure 02/03/2016. D. Rate controlled. 4. Chronic diastolic heart failure. A. The patient has a chronic congestive failure with cardiomegaly, bilateral pleural effusions, right greater than left. B. Stable with no evidence of acute on chronic congestive heart failure as 01/31/2017. C. Managed with 1800 mL fluid restriction, the Lasix, and periodic doses of Zaroxolyn. 5. Severe pulmonary hypertension. A. Complicated by chronic hypoxemia. B. Complicated by severe enlargement of the right ventricle with severe tricuspid regurgitation . C. Complicated by severe right heart failure. D. Complicated by episodes of severe orthostatic hypotension. 6. Chronic hypoxic respiratory failure. A. 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 B. Requires continuous supplemental O2 at 2-3 liters. 7. Hypertension. 8. Chronic kidney disease stage 3. 9. Anemia of chronic illness, stable. 10. Depression, controlled. 11. Hypercholesterolemia. 12. Mitral regurgitation. 13. Right middle and lower lobe pneumonia. A. Resolved. B. Completed a 10 day course of Ceftin. 14. Venous insufficiency. 15. Recent fall resulting in laceration right temporal area with suturing that has healed and sprain of the right ankle that is improving. 16. Right anterior pleural rub, improving. 17. Orthostatic hypotension. A. Complicated by near syncope/syncopal episodes that she describes as white out spells. B. Stable as of 01/29/2017. C. Last episode on the afternoon of 01/30/2017. D. Etiology severe right heart failure with decreased venous return to the left heart. PLAN: The patient looks stable. We will continue cautious physical therapy. The patient has a sta ge 3-4 congestive heart failure. This is complicated by severe episodes of orthostatic hypotension. The patient does not tolerate reductions of the diuretics without progressing into fluid overload and acute CHF with hypoxemia and as a result of these medications she has problems with some hypoten shayla and orthostatic of hypotension. We will continue careful balance between her congestive heart failure and blood pressure. Her retirement prognosis is poor. Activities may have to be severely cu rtailed, we will allow her activities within her tolerance. Her hypokalemia has resolved. Will red uce the potassium to daily and recheck in 2 days.
[2017-01-31] MEDS: Atorvastatin Calcium 10 MG TAB PO SCH (21:13)
[2017-02-01] MEDS: Polyethylene Glycol 3350 17 GM Packet PO SCH (08:33)
[2017-02-01] MEDS: Metoprolol Tartrate 25 MG TAB PO SCH ×2 (08:33→20:39)
[2017-02-01] MEDS: DOFETILIDE PO SCH ×2 (08:33→20:41)
[2017-02-01] MEDS: Potassium Chloride 20 MEQ TAB PO SCH (08:33)
[2017-02-01] MEDS: Furosemide 80 MG TAB PO SCH ×2 (08:34→14:00)
[2017-02-01] MEDS: Docusate 100 MG CAP PO SCH ×2 (08:34→20:40)
[2017-02-01] MEDS: Clotrimazole 1% Cream 15 GM TUBE TOP SCH ×2 (08:34→20:41)
[2017-02-01] MEDS: FLUoxetine HCl 20 MG CAP PO SCH (08:34)
[2017-02-01] MEDS: Atorvastatin Calcium 10 MG TAB PO SCH (20:40)
[2017-02-02 05:41] LABS: Anion Gap 13 mmol/L (10-20); BUN (Urea Nitrogen) 27 mg/dL (9.8-20.1); Calc. Creatinine Clearance 55 mL/min (70-130); Calcium 8.2 mg/dL (7.8-10.44); Carbon Dioxide 25 mmol/L (23-31); Chloride 104 mmol/L (98-107); Estimated GFR-MDRD 57; Glucose 111 mg/dL (83-110); Sodium 138 mmol/L (136-145)
[2017-02-02] MEDS: Metoprolol Tartrate 25 MG TAB PO SCH ×2 (08:24→19:47)
[2017-02-02] MEDS: Polyethylene Glycol 3350 17 GM Packet PO SCH (08:24)
[2017-02-02] MEDS: Potassium Chloride 20 MEQ TAB PO SCH (08:24)
[2017-02-02] MEDS: Clotrimazole 1% Cream 15 GM TUBE TOP SCH ×2 (08:25→19:47)
[2017-02-02] MEDS: DOFETILIDE PO SCH ×2 (08:25→19:49)
[2017-02-02] MEDS: FLUoxetine HCl 20 MG CAP PO SCH (08:25)
[2017-02-02] MEDS: Furosemide 80 MG TAB PO SCH ×2 (08:25→14:00)
[2017-02-02] MEDS: Docusate 100 MG CAP PO SCH ×2 (08:25→19:46)
--- NOTE | 2017-02-02 09:23 | PRG ---
DATE OF SERVICE: 02/02/2017 SUBJECTIVE: The patient said she had a good night. She slept well. She is not having any breathin g trouble. Yesterday, she did not get up much. Nurses were little a apprehensive to get her up too much due to her recent orthostatic changes with near syncope. OBJECTIVE: The patient is alert, talkative, appears very comfortable and in no distress. Her tempe rature is 98.6, pulse 80, respirations 20, O2 sat 92% on 3-1/2 liters, blood pressure 110/57. Her w eight is up to 168. She had been stable at 166, 164 to 166 is her usual baseline. Her lungs are cl ear. Heart, regular rate. Extremities, no edema. Her sodium is 138, potassium 4, BUN stable at 27, creatinine stable at 0.94, GFR up to 57 from 54. ASSESSMENT: 1. Severe generalized weakness and deconditioning. A. Chronic weakness secondary to her severe comorbidities and hypoxemia with acute exacerbation secondary to recent hospitalization from 12/30/2016 to 01/06/2017. B. Upon presentation to this hospital she was unable to walk or even sit up in a chair. C. Complicated by marked decline in her functional capabilities. D. Improvement has been slowed by the severe orthostatic hypotensive episodes with near syncope . Today, though, she appears stable as of 02/02/2017. 2. 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 3. Chronic atrial fibrillation. A. Status post electrical cardioversion with recurrence. B. Status post multiple ablations with recurrence. Required pacemaker for prevention of symptomatic bradycardia and medicines to control rapid rates. C. Status post Watchman procedure 02/03/2016. D. Rate controlled. 4. Chronic diastolic heart failure. A. The patient has a chronic congestive failure with cardiomegaly, bilateral pleural effusions, right greater than left. B. Stable. No evidence of acute on chronic congestive heart failure as of 02/02/2017. C. Managed with 1800 mL fluid restriction, the Lasix, and periodic doses of Zaroxolyn. D. Chronic congestive heart failure that is a stage 3-4. 5. Severe pulmonary hypertension. A. Complicated by chronic hypoxemia. B. Complicated by severe enlargement of the right ventricle with severe tricuspid regurgitation . C. Complicated by severe right heart failure. D. Complicated by episodes of severe orthostatic hypotension. 6. Chronic hypoxic respiratory failure. A. 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 B. Requires continuous supplemental O2 at 2-3 liters. 7. Hypertension. 8. Chronic kidney disease stage 3. 9. Anemia of chronic illness, stable. 10. Depression, controlled. 11. Hypercholesterolemia. 12. Mitral regurgitation. 13. Right middle and lower lobe pneumonia. A. Resolved. B. Completed a 10 day course of Ceftin. 14. Venous insufficiency. 15. Recent fall resulting in laceration right temporal area with suturing that has healed and sprain of the right ankle that is improving. 16. Right anterior pleural rub, improving. 17. Orthostatic hypotension. A. Complicated by near syncope/syncopal episodes that she describes as white out spells. B. Stable as of 01/29/2017. C. Last episode on the afternoon of 01/30/2017. D. Etiology severe right heart failure with decreased venous return to the left heart. E. Stable as of . PLAN: Will try gradual increasing activities. We will watch her weight another day, if she goes m ore will give her an additional dose of Zaroxolyn.
[2017-02-02] MEDS: Atorvastatin Calcium 10 MG TAB PO SCH (19:46)
[2017-02-03] MEDS ORDERED: Metolazone 5 MG TAB PO SCH (08:15)
[2017-02-03] MEDS: Metoprolol Tartrate 25 MG TAB PO SCH ×2 (08:32→20:40)
[2017-02-03] MEDS: Docusate 100 MG CAP PO SCH ×2 (08:32→20:40)
[2017-02-03] MEDS: Furosemide 80 MG TAB PO SCH ×2 (08:32→14:00)
[2017-02-03] MEDS: Polyethylene Glycol 3350 17 GM Packet PO SCH (08:33)
[2017-02-03] MEDS: Potassium Chloride 20 MEQ TAB PO SCH (08:33)
[2017-02-03] MEDS: DOFETILIDE PO SCH ×2 (08:34→20:42)
[2017-02-03] MEDS: FLUoxetine HCl 20 MG CAP PO SCH (08:34)
[2017-02-03] MEDS: Clotrimazole 1% Cream 15 GM TUBE TOP SCH ×2 (08:34→20:41)
--- NOTE | 2017-02-03 09:31 | PRG ---
DATE OF SERVICE: 02/03/2017 SUBJECTIVE: The patient said she is doing pretty good today. She said she set up in a chair most o f the day and was able to walk in the room. She has not had any more of the white out spells. She slept good last night. OBJECTIVE: The patient lying in bed, alert, talkative, and appears comfortable and in no distress. Her temperature is 98.7, pulse 82, respirations 18, O2 sat 94% on 3-1/2 liters, blood pressure 114/ 54. Her lungs are clear at the bases with good breath sounds. There is the chronic pleural rub in the right upper anterior chest. Heart, regular rate. Extremities, no edema. The patient's weight is up to 169. Her usual baseline is around 164 and it has gradually crept up now to 169. ASSESSMENT: 1. Severe generalized weakness and deconditioning. A. Chronic weakness secondary to her severe comorbidities and hypoxemia with acute exacerbation secondary to recent hospitalization from 12/30/2016 to 01/06/2017. B. Upon presentation to this hospital she was unable to walk or even sit up in a chair. C. Complicated by marked decline in her functional capabilities. D. Improved as of 02/03/2017. 2. 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 3. Chronic atrial fibrillation. A. Status post electrical cardioversion with recurrence. B. Status post multiple ablations with recurrence. Required pacemaker for prevention of symptomatic bradycardia and medicines to control rapid rates. C. Status post Watchman procedure 02/03/2016. D. Rate controlled. 4. Chronic diastolic heart failure. A. The patient has a chronic congestive failure with cardiomegaly, bilateral pleural effusions, right greater than left. B. Stable. No evidence of acute on chronic congestive heart failure as of 02/02/2017. C. Managed with 1800 mL fluid restriction, the Lasix, and periodic doses of Zaroxolyn. D. Chronic congestive heart failure that is a stage 3-4. E. Weight up to 169, all of her usual baseline of 164 to 169 as of 02/03/2017. 5. Severe pulmonary hypertension. A. Complicated by chronic hypoxemia. B. Complicated by severe enlargement of the right ventricle with severe tricuspid regurgitation . C. Complicated by severe right heart failure. D. Complicated by episodes of severe orthostatic hypotension. 6. Chronic hypoxic respiratory failure. A. 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 B. Requires continuous supplemental O2 at 2-3 liters. 7. Hypertension. 8. Chronic kidney disease stage 3. 9. Anemia of chronic illness, stable. 10. Depression, controlled. 11. Hypercholesterolemia. 12. Mitral regurgitation. 13. Right middle and lower lobe pneumonia. A. Resolved. B. Completed a 10 day course of Ceftin. 14. Venous insufficiency. 15. Recent fall resulting in laceration right temporal area with suturing that has healed and sprain of the right ankle that is improving. 16. Right anterior pleural rub, improving. 17. Orthostatic hypotension. A. Complicated by near syncope/syncopal episodes that she describes as white out spells. B. Stable as of 01/29/2017. C. Last episode on the afternoon of 01/30/2017. D. Etiology severe right heart failure with decreased venous return to the left heart. E. Stable with no recurrence as of 02/03/2017. PLAN: Continue present care. Will give the patient Zaroxolyn 5 mg a day, usually she has a very br isk diuresis with this in conjunction with the furosemide and will pull her weight back down to a ba seline and helps avoid her from getting progressive failure with increased hypoxemia. We will reche ck electrolytes in the morning.
[2017-02-03] MEDS: Atorvastatin Calcium 10 MG TAB PO SCH (20:39)
[2017-02-04 06:35] LABS: Anion Gap 13 mmol/L (10-20); BUN (Urea Nitrogen) 21 mg/dL (9.8-20.1); Calc. Creatinine Clearance 54 mL/min (70-130); Calcium 8.1 mg/dL (7.8-10.44); Carbon Dioxide 30 mmol/L (23-31); Chloride 99 mmol/L (98-107); Estimated GFR-MDRD 58; Glucose 101 mg/dL (83-110); Sodium 139 mmol/L (136-145)
[2017-02-04 06:54] LABS: #Basophils 0.1 thou/uL (0.0-0.2); #Eosinphils 0.2 thou/uL (0.0-0.7); #Lymphocytes 0.9 thou/uL (1.20-3.40); #Neutrophils 7.6 thou/uL (1.40-6.50); %Basophils 0.9 % (0.0-1.0); %Eosinophils 2.4 % (0.0-10.0); %Lymphocytes 9.3 % (21.0-51.0); %Monocytes 9.9 % (0.0-10.0); %Neutrophils 77.4 % (42.0-75.0); Hemoglobin 8.8 g/dL (12.0-16.0); Mean Corpuscular Hemoglobin 24.1 pg (27.0-31.0); Mean Corpuscular Volume 80.3 fl (81.0-99.0); Platelet Count 305 thou/uL (130-400); RBC Distribution Width 21.9 % (11.5-14.5); Red Blood Cell (RBC) Count 3.64 mill/uL (4.20-5.40); White Blood Cell (WBC) Count 9.8 thou/uL (4.8-10.8)
[2017-02-04 07:05] LABS: Anisocytosis MODERATE=16-30 cells (100X) (0-5/hpf); Poikilocytosis MODERATE=16-30 cells (100X) (0-5/hpf); Schistocytes SLIGHT = 2-5 cells (100X) (0-1/hpf)
[2017-02-04 07:06] LABS: PLT Morphology Comment Appears Adequate
[2017-02-04] MEDS: Furosemide 80 MG TAB PO SCH ×2 (08:23→14:23)
[2017-02-04] MEDS: Potassium Chloride 20 MEQ TAB PO SCH ×3 (08:23→20:21)
[2017-02-04] MEDS: Polyethylene Glycol 3350 17 GM Packet PO SCH (08:23)
[2017-02-04] MEDS: FLUoxetine HCl 20 MG CAP PO SCH (08:23)
[2017-02-04] MEDS: Clotrimazole 1% Cream 15 GM TUBE TOP SCH ×2 (08:24→20:26)
[2017-02-04] MEDS: DOFETILIDE PO SCH ×2 (08:24→20:25)
[2017-02-04] MEDS: Docusate 100 MG CAP PO SCH ×2 (08:24→20:21)
[2017-02-04] MEDS: Metoprolol Tartrate 25 MG TAB PO SCH ×2 (08:24→20:23)
[2017-02-04 08:49] LABS: Potassium 2.7 mmol/L (3.5-5.1)
--- NOTE | 2017-02-04 14:34 | PRG ---
DATE OF SERVICE: 02/04/2017 SUBJECTIVE: The patient said she is feeling great today. She said she has lost about 5 pounds. Ye sterday, she was up and back and forth to the bathroom a lot to urinate. The patient said she did n ot feel lightheaded, nor did she have any (00:32) episodes nor any weak spells. Overall, she feels much better. OBJECTIVE: GENERAL: The patient is alert and appears in no distress. VITAL SIGNS: Her temperature 98, pulse 73, respirations 18, O2 sat 92% on 3 liters. Her weight is down to 165 with 5-pound weight loss. The patient had 4000 mL urinary output. The patient's blood pressure 100/56, pulse 88. LUNGS: Clear. HEART: Regular rate. EXTREMITIES: No edema. LABORATORY DATA: Sodium 139, potassium 2.7, BUN 21, creatinine 0.93. GFR stable at 58, glucose 101 . ASSESSMENT: 1. Severe generalized weakness and deconditioning. A. Chronic weakness secondary to her severe comorbidities and hypoxemia with acute exacerbation secondary to recent hospitalization from 12/30/2016 to 01/06/2017. B. Upon presentation to this hospital she was unable to walk or even sit up in a chair. C. Complicated by marked decline in her functional capabilities. D. Improved as of 02/04/2017. 2. 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 3. Chronic atrial fibrillation. A. Status post electrical cardioversion with recurrence. B. Status post multiple ablations with recurrence. Required pacemaker for prevention of symptomatic bradycardia and medicines to control rapid rates. C. Status post Watchman procedure 02/03/2016. D. Rate controlled. 4. Chronic diastolic heart failure. A. The patient has a chronic congestive failure with cardiomegaly, bilateral pleural effusions, right greater than left. B. Stable. No evidence of acute on chronic congestive heart failure as of 02/04/2017. C. Managed with 1800 mL fluid restriction, the Lasix, and periodic doses of Zaroxolyn. D. Chronic congestive heart failure that is a stage 3-4. E. Weight down to 164, her baseline after 5 mg of Zaroxolyn in 4000 mL diureses of urine as of 02/04/2017. 5. Severe pulmonary hypertension. A. Complicated by chronic hypoxemia. B. Complicated by severe enlargement of the right ventricle with severe tricuspid regurgitation . C. Complicated by severe right heart failure. D. Complicated by episodes of severe orthostatic hypotension. 6. Chronic hypoxic respiratory failure. A. 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 B. Requires continuous supplemental O2 at 2-3 liters. 7. Hypertension. 8. Chronic kidney disease stage 3. 9. Anemia of chronic illness, stable. 10. Depression, controlled. 11. Hypercholesterolemia. 12. Mitral regurgitation. 13. Right middle and lower lobe pneumonia. A. Resolved. B. Completed a 10 day course of Ceftin. 14. Venous insufficiency. 15. Recent fall resulting in laceration right temporal area with suturing that has healed and sprain of the right ankle that is improving. 16. Right anterior pleural rub, improving. 17. Orthostatic hypotension. A. Complicated by near syncope/syncopal episodes that she describes as white out spells. B. Stable as of 01/29/2017. C. Last episode on the afternoon of 01/30/2017. D. Etiology severe right heart failure with decreased venous return to the left heart. E. Stable with no recurrence as of 02/04/2017. 18. Hypokalemia secondary to the diuresis. PLAN: We will increase patient's potassium to b.i.d. 20 mEq. Continue physical therapy. Continue periodic doses of the Zaroxolyn if she gains more than 3 pounds in a day. Potassium will be increas ed to 3 times a day and we will monitor the potassium level.
[2017-02-04] MEDS: Atorvastatin Calcium 10 MG TAB PO SCH (20:22)
[2017-02-05] MEDS: Furosemide 80 MG TAB PO SCH ×2 (08:59→14:16)
[2017-02-05] MEDS: Metoprolol Tartrate 25 MG TAB PO SCH ×2 (08:59→20:37)
[2017-02-05] MEDS: Docusate 100 MG CAP PO SCH ×2 (08:59→20:38)
[2017-02-05] MEDS: Potassium Chloride 20 MEQ TAB PO SCH ×3 (08:59→20:39)
[2017-02-05] MEDS: DOFETILIDE PO SCH ×2 (09:00→20:39)
[2017-02-05] MEDS: Polyethylene Glycol 3350 17 GM Packet PO SCH (09:00)
[2017-02-05] MEDS: Clotrimazole 1% Cream 15 GM TUBE TOP SCH ×2 (09:00→20:39)
[2017-02-05] MEDS: FLUoxetine HCl 20 MG CAP PO SCH (09:00)
[2017-02-05] MEDS: Atorvastatin Calcium 10 MG TAB PO SCH (20:37)
[2017-02-06 06:42] LABS: Anion Gap 11 mmol/L (10-20); BUN (Urea Nitrogen) 22 mg/dL (9.8-20.1); Calc. Creatinine Clearance 55 mL/min (70-130); Calcium 8.3 mg/dL (7.8-10.44); Carbon Dioxide 31 mmol/L (23-31); Chloride 101 mmol/L (98-107); Estimated GFR-MDRD 61; Glucose 123 mg/dL (83-110); Potassium 3.1 mmol/L (3.5-5.1); Sodium 140 mmol/L (136-145)
[2017-02-06] MEDS: Clotrimazole 1% Cream 15 GM TUBE TOP SCH ×2 (08:33→20:24)
[2017-02-06] MEDS: Docusate 100 MG CAP PO SCH ×2 (08:33→20:24)
[2017-02-06] MEDS: FLUoxetine HCl 20 MG CAP PO SCH (08:34)
[2017-02-06] MEDS: Furosemide 80 MG TAB PO SCH ×2 (08:34→14:06)
[2017-02-06] MEDS: Metoprolol Tartrate 25 MG TAB PO SCH ×2 (08:34→20:25)
[2017-02-06] MEDS: Polyethylene Glycol 3350 17 GM Packet PO SCH (08:35)
[2017-02-06] MEDS: DOFETILIDE PO SCH ×2 (08:35→20:29)
[2017-02-06] MEDS: Potassium Chloride 20 MEQ TAB PO SCH ×3 (08:36→20:24)
--- NOTE | 2017-02-06 17:57 | PRG ---
DATE OF SERVICE: 02/06/2017 SUBJECTIVE: Patient said she is feeling better. Her breathing is doing just fine. Her weight has continued to drop a little more. She has been sitting up most of the day, has been walking some in the room. She has not had any white out spells now for about a week. OBJECTIVE: GENERAL: Patient is sitting up in her chair having eaten a good breakfast. She appears very comfor table and she is talkative and appears in no distress. VITAL SIGNS: Her vital signs shows temperature of 98.5, pulse 80, respirations 20, O2 sat 92%, bloo d pressure 108/57. Her weight is 161. LUNGS: Clear. HEART: Regular rate. EXTREMITIES: No edema. LABORATORY DATA: Her sodium is 140, potassium is up to 3.1, BUN is 22, creatinine 0.89, glucose 123 . ASSESSMENT: 1. Severe generalized weakness and deconditioning. A. Chronic weakness secondary to her severe comorbidities and hypoxemia with acute exacerbation secondary to recent hospitalization from 12/30/2016 to 01/06/2017. B. Upon presentation to this hospital she was unable to walk or even sit up in a chair. C. Complicated by marked decline in her functional capabilities. D. Improved as of 02/06/2017. 2. 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 3. Chronic atrial fibrillation. A. Status post electrical cardioversion with recurrence. B. Status post multiple ablations with recurrence. Required pacemaker for prevention of symptomatic bradycardia and medicines to control rapid rates. C. Status post Watchman procedure 02/03/2016. D. Rate controlled. 4. Chronic diastolic heart failure. A. The patient has a chronic congestive failure with cardiomegaly, bilateral pleural effusions, right greater than left. B. Stable. No evidence of acute on chronic congestive heart failure as of 02/04/2017. C. Managed with 1800 mL fluid restriction, the Lasix, and periodic doses of Zaroxolyn. D. Chronic congestive heart failure that is a stage 3-4. E. Weight down to 161 with no evidence of acute congestive heart failure as of 02/06/2017. 5. Severe pulmonary hypertension. A. Complicated by chronic hypoxemia. B. Complicated by severe enlargement of the right ventricle with severe tricuspid regurgitation . C. Complicated by severe right heart failure. D. Complicated by episodes of severe orthostatic hypotension. This is improved with no (white out) spells for about a week as of 02/06/2017. 6. Chronic hypoxic respiratory failure. A. 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 B. Requires continuous supplemental O2 at 2-3 liters. 7. Hypertension. 8. Chronic kidney disease stage 3. 9. Anemia of chronic illness, stable. 10. Depression, controlled. 11. Hypercholesterolemia. 12. Mitral regurgitation. 13. Right middle and lower lobe pneumonia. A. Resolved. B. Completed a 10 day course of Ceftin. 14. Venous insufficiency. 15. Recent fall resulting in laceration right temporal area with suturing that has healed and sprain of the right ankle that is improving. 16. Right anterior pleural rub, improving. 17. Orthostatic hypotension. A. Complicated by near syncope/syncopal episodes that she describes as white out spells. B. Stable as of 01/29/2017. C. Last episode on the afternoon of 01/30/2017. D. Etiology severe right heart failure with decreased venous return to the left heart. E. Stable with no recurrence of white out spells for now about a week as of 02/06/2014. 18. Hypokalemia secondary to the diuresis. A. Improved with potassium up to 3.1 as of 02/06/2017. PLAN: Continue present care. Continue physical therapy. We will recheck electrolytes and renal fu nction in a couple of days.
[2017-02-06] MEDS: Atorvastatin Calcium 10 MG TAB PO SCH (20:23)
[2017-02-07] MEDS: Docusate 100 MG CAP PO SCH ×2 (09:16→21:06)
[2017-02-07] MEDS: Furosemide 80 MG TAB PO SCH ×2 (09:16→14:41)
[2017-02-07] MEDS: Clotrimazole 1% Cream 15 GM TUBE TOP SCH ×2 (09:16→21:07)
[2017-02-07] MEDS: FLUoxetine HCl 20 MG CAP PO SCH (09:16)
[2017-02-07] MEDS: Metoprolol Tartrate 25 MG TAB PO SCH ×2 (09:16→20:59)
[2017-02-07] MEDS: Potassium Chloride 20 MEQ TAB PO SCH ×3 (09:17→21:06)
[2017-02-07] MEDS: DOFETILIDE PO SCH ×2 (09:17→21:05)
[2017-02-07] MEDS: Polyethylene Glycol 3350 17 GM Packet PO SCH (09:17)
[2017-02-07] MEDS: Atorvastatin Calcium 10 MG TAB PO SCH (21:04)
[2017-02-08 06:01] LABS: Anion Gap 15 mmol/L (10-20); BUN (Urea Nitrogen) 28 mg/dL (9.8-20.1); Calc. Creatinine Clearance 46 mL/min (70-130); Calcium 8.7 mg/dL (7.8-10.44); Carbon Dioxide 28 mmol/L (23-31); Chloride 100 mmol/L (98-107); Estimated GFR-MDRD 48; Glucose 123 mg/dL (83-110); Potassium 3.9 mmol/L (3.5-5.1); Sodium 139 mmol/L (136-145)
[2017-02-08] MEDS: Polyethylene Glycol 3350 17 GM Packet PO SCH (08:48)
[2017-02-08] MEDS: Docusate 100 MG CAP PO SCH ×2 (08:49→20:38)
[2017-02-08] MEDS: Furosemide 80 MG TAB PO SCH ×2 (08:49→14:12)
[2017-02-08] MEDS: Metoprolol Tartrate 25 MG TAB PO SCH ×2 (08:49→20:41)
[2017-02-08] MEDS: Clotrimazole 1% Cream 15 GM TUBE TOP SCH ×2 (08:49→20:45)
[2017-02-08] MEDS: DOFETILIDE PO SCH ×2 (08:50→20:43)
[2017-02-08] MEDS: Potassium Chloride 20 MEQ TAB PO SCH ×2 (08:50→20:42)
[2017-02-08] MEDS: FLUoxetine HCl 20 MG CAP PO SCH (08:50)
--- NOTE | 2017-02-08 11:13 | PRG ---
DATE OF SERVICE: 02/08/2017 SUBJECTIVE: The patient thinks she is doing good. She did not sleep as well last night. This morn ing, she is a little sleepy. She has had no trouble with her breathing. She is walking some in the halls now. She has had no trouble with her ankle. She has been walking to the bathroom with her w alker without her walking boot on the right foot and lower leg. Overall, she is feeling okay. OBJECTIVE: GENERAL: Patient lying in bed, alert, appears comfortable in no distress. VITAL SIGNS: Her temperature is 98.3. Her pulse is 80, respirations 18, O2 sat 95% on 3 liters, bl ood pressure 104/55. Her weight is 163. LUNGS: Clear. CARDIAC: Regular rate. EXTREMITIES: No edema. MUSCULOSKELETAL: Right ankle. There is no swelling. There is good inversion and eversion and no t enderness over the anterior talofibular ligament, ankle feels stable. LABORATORY DATA: Her lab shows sodium of 139, potassium of 3.9, BUN 28, creatinine 1.09, GFR of 48, glucose 123. ASSESSMENT: 1. Severe generalized weakness and deconditioning. A. Chronic weakness secondary to her severe comorbidities and hypoxemia with acute exacerbation secondary to recent hospitalization from 12/30/2016 to 01/06/2017. B. Upon presentation to this hospital she was unable to walk or even sit up in a chair. C. Complicated by marked decline in her functional capabilities. D. Improved as of 02/08/2017. 2. 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 3. Chronic atrial fibrillation. A. Status post electrical cardioversion with recurrence. B. Status post multiple ablations with recurrence. Required pacemaker for prevention of symptomatic bradycardia and medicines to control rapid rates. C. Status post Watchman procedure 02/03/2016. D. Rate controlled. 4. Chronic diastolic heart failure. A. The patient has a chronic congestive failure with cardiomegaly, bilateral pleural effusions, right greater than left. B. Stable. No evidence of acute on chronic congestive heart failure as of 02/04/2017. C. Managed with 1800 mL fluid restriction, the Lasix, and periodic doses of Zaroxolyn. D. Chronic congestive heart failure that is a stage 3-4. E. Weight stable at 163 with no evidence of acute congestive heart failure as of 02/08/2017. 5. Severe pulmonary hypertension. A. Complicated by chronic hypoxemia. B. Complicated by severe enlargement of the right ventricle with severe tricuspid regurgitation . C. Complicated by severe right heart failure. D. Complicated by episodes of severe orthostatic hypotension. This is improved with no (white out) spells for about a week as of 02/06/2017. 6. Chronic hypoxic respiratory failure. A. 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 B. Requires continuous supplemental O2 at 2-3 liters. 7. Hypertension. 8. Chronic kidney disease stage 3. 9. Anemia of chronic illness, stable. 10. Depression, controlled. 11. Hypercholesterolemia. 12. Mitral regurgitation. 13. Right middle and lower lobe pneumonia. A. Resolved. B. Completed a 10 day course of Ceftin. 14. Venous insufficiency. 15. Recent fall resulting in laceration right temporal area with suturing that has healed and sprain of the right ankle that is improving. 16. Right anterior pleural rub, improving. 17. Orthostatic hypotension. A. Complicated by near syncope/syncopal episodes that she describes as white out spells. B. Stable as of 01/29/2017. C. Last episode on the afternoon of 01/30/2017. D. Etiology severe right heart failure with decreased venous return to the left heart. E. Stable with no recurrence or white out spells for little over a week as of 02/08/2017. 18. Hypokalemia secondary to the diuresis. A. Improved potassium up to 3.9 as of 02/08/2017. 19. Sprain of the right ankle is healing as of 02/08/2017. PLAN: We will stop using the walking boot when patient is ambulating. Her ankle should be healing well and she should do fine without this. Should been ambulate in the room without this. Continue present care. Continue physical therapy. We will reduce the patient's potassium to b.i.d. and rech mahad electrolytes tomorrow.
[2017-02-08] MEDS: Atorvastatin Calcium 10 MG TAB PO SCH (20:37)
[2017-02-09 06:00] LABS: Calc. Creatinine Clearance 51 mL/min (70-130); Calcium 8.8 mg/dL (7.8-10.44); Chloride 101 mmol/L (98-107); Estimated GFR-MDRD 54; Potassium 4.6 mmol/L (3.5-5.1); Sodium 138 mmol/L (136-145)
[2017-02-09 06:38] LABS: BUN (Urea Nitrogen) 27 mg/dL (9.8-20.1); Carbon Dioxide 27 mmol/L (23-31); Glucose 132 mg/dL (83-110)
[2017-02-09] MEDS: Metoprolol Tartrate 25 MG TAB PO SCH ×3 (08:35→20:21)
[2017-02-09] MEDS: Docusate 100 MG CAP PO SCH ×3 (08:35→20:25)
[2017-02-09] MEDS: Potassium Chloride 20 MEQ TAB PO SCH ×2 (08:35→20:19)
[2017-02-09] MEDS: FLUoxetine HCl 20 MG CAP PO SCH (08:35)
[2017-02-09] MEDS: Clotrimazole 1% Cream 15 GM TUBE TOP SCH ×2 (08:36→20:21)
[2017-02-09] MEDS: Furosemide 80 MG TAB PO SCH ×2 (08:36→14:29)
[2017-02-09] MEDS: DOFETILIDE PO SCH ×3 (08:36→20:25)
[2017-02-09] MEDS: Polyethylene Glycol 3350 17 GM Packet PO SCH (08:36)
[2017-02-09 13:27] LABS: Anion Gap 15 mmol/L (10-20)
[2017-02-09] MEDS: Atorvastatin Calcium 10 MG TAB PO SCH (20:19)
[2017-02-10] MEDS ORDERED: Metolazone 5 MG TAB PO SCH (08:15)
--- NOTE | 2017-02-10 09:26 | PRG ---
DATE OF SERVICE: 02/10/2017 SUBJECTIVE: The patient said she had a good night. This morning she said she is feeling alright. Her weight has gone up a little bit. OBJECTIVE: The patient is alert and appears in no distress. Temp 97.8, pulse 75, respirations 20, O2 sat 95% on 2 liters, blood pressure 103/54. Her weight is 166. Her lungs are clear. Heart, reg ular rate. Extremities, no edema. ASSESSMENT: 1. Severe generalized weakness and deconditioning. A. Chronic weakness secondary to her severe comorbidities and hypoxemia with acute exacerbation secondary to recent hospitalization from 12/30/2016 to 01/06/2017. B. Upon presentation to this hospital she was unable to walk or even sit up in a chair. C. Complicated by marked decline in her functional capabilities. D. Improved as of 02/10/2017. 2. 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 3. Chronic atrial fibrillation. A. Status post electrical cardioversion with recurrence. B. Status post multiple ablations with recurrence. Required pacemaker for prevention of symptomatic bradycardia and medicines to control rapid rates. C. Status post Watchman procedure 02/03/2016. D. Rate controlled. 4. Chronic diastolic heart failure. A. The patient has a chronic congestive failure with cardiomegaly, bilateral pleural effusions, right greater than left. B. Stable. No evidence of acute on chronic congestive heart failure as of 02/04/2017. C. Managed with 1800 mL fluid restriction, the Lasix, and periodic doses of Zaroxolyn. D. Weight gradually has come up to 166 as of 02/10/2017. E. Weight stable at 163 with no evidence of acute congestive heart failure as of 02/08/2017. 5. Severe pulmonary hypertension. A. Complicated by chronic hypoxemia. B. Complicated by severe enlargement of the right ventricle with severe tricuspid regurgitation . C. Complicated by severe right heart failure. D. Complicated by episodes of severe orthostatic hypotension. This is improved with no (white out) spells for about a week as of 02/06/2017. 6. Chronic hypoxic respiratory failure. A. 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 B. Requires continuous supplemental O2 at 2-3 liters. 7. Hypertension. 8. Chronic kidney disease stage 3. 9. Anemia of chronic illness, stable. 10. Depression, controlled. 11. Hypercholesterolemia. 12. Mitral regurgitation. 13. Right middle and lower lobe pneumonia. A. Resolved. B. Completed a 10 day course of Ceftin. 14. Venous insufficiency. 15. Recent fall resulting in laceration right temporal area with suturing that has healed and sprain of the right ankle that is improving. 16. Right anterior pleural rub, improving. 17. Orthostatic hypotension. A. Complicated by near syncope/syncopal episodes that she describes as white out spells. B. Stable as of 01/29/2017. C. Last episode on the afternoon of 01/30/2017. No recurrence as of 02/10/2017. D. Etiology severe right heart failure with decreased venous return to the left heart. 18. Hypokalemia secondary to the diuresis. A. Improved potassium up to 3.9 as of 02/08/2017. 19. Sprain of the right ankle is healing as of 02/08/2017. PLAN: Continue present care. Continue physical therapy. We will give patient Zaroxolyn with a tar get going home tomorrow. We will reevaluate her then and then decide.
[2017-02-10] MEDS: Polyethylene Glycol 3350 17 GM Packet PO SCH (09:36)
[2017-02-10] MEDS: FLUoxetine HCl 20 MG CAP PO SCH (09:37)
[2017-02-10] MEDS: Furosemide 80 MG TAB PO SCH ×2 (09:37→14:19)
[2017-02-10] MEDS: Metoprolol Tartrate 25 MG TAB PO SCH ×2 (09:37→21:09)
[2017-02-10] MEDS: Docusate 100 MG CAP PO SCH ×2 (09:37→21:10)
[2017-02-10] MEDS: DOFETILIDE PO SCH ×2 (09:38→21:12)
[2017-02-10] MEDS: Clotrimazole 1% Cream 15 GM TUBE TOP SCH ×2 (09:38→21:12)
[2017-02-10] MEDS: Atorvastatin Calcium 10 MG TAB PO SCH (21:11)
[2017-02-11 05:24] LABS: Anion Gap 13 mmol/L (10-20); BUN (Urea Nitrogen) 22 mg/dL (9.8-20.1); Calc. Creatinine Clearance 47 mL/min (70-130); Calcium 8.3 mg/dL (7.8-10.44); Carbon Dioxide 31 mmol/L (23-31); Chloride 97 mmol/L (98-107); Estimated GFR-MDRD 51; Glucose 109 mg/dL (83-110); Sodium 138 mmol/L (136-145)
[2017-02-11 05:30] LABS: Potassium 2.8 mmol/L (3.5-5.1)
[2017-02-11 05:35] LABS: #Basophils 0.1 thou/uL (0.0-0.2); #Eosinphils 0.2 thou/uL (0.0-0.7); #Lymphocytes 0.8 thou/uL (1.20-3.40); #Monocytes 0.8 thou/uL (0.11-0.59); #Neutrophils 7.7 thou/uL (1.40-6.50); %Basophils 1.2 % (0.0-1.0); %Eosinophils 2.5 % (0.0-10.0); %Monocytes 8.5 % (0.0-10.0); %Neutrophils 79.8 % (42.0-75.0); Hemoglobin 8.7 g/dL (12.0-16.0); MDiff Complete? YES; Mean Corpuscular HGB CONC 30.2 g/dL (32.0-36.0); Mean Corpuscular Hemoglobin 23.6 pg (27.0-31.0); Platelet Count 353 thou/uL (130-400); RBC Distribution Width 21.9 % (11.5-14.5); Red Blood Cell (RBC) Count 3.68 mill/uL (4.20-5.40); Reflex for Review?? NO; White Blood Cell (WBC) Count 9.6 thou/uL (4.8-10.8)
[2017-02-11 05:36] LABS: Anisocytosis SLIGHT = 6-15 cells (100X) (0-5/hpf); Hypochromia MODERATE=16-30 cells (100X) (0-5/hpf); Microcytosis SLIGHT = 6-15 cells (100X) (0-5/hpf); PLT Morphology Comment Appears Adequate; Poikilocytosis SLIGHT = 6-15 cells (100X) (0-5/hpf); RBC Morphology ABNORMAL
[2017-02-11] MEDS: Furosemide 80 MG TAB PO SCH ×2 (08:18→13:46)
[2017-02-11] MEDS: Docusate 100 MG CAP PO SCH ×2 (08:19→20:42)
[2017-02-11] MEDS: Clotrimazole 1% Cream 15 GM TUBE TOP SCH ×2 (08:19→20:42)
[2017-02-11] MEDS: Metoprolol Tartrate 25 MG TAB PO SCH ×2 (08:19→20:42)
[2017-02-11] MEDS: FLUoxetine HCl 20 MG CAP PO SCH (08:19)
[2017-02-11] MEDS: Potassium Chloride 20 MEQ TAB PO SCH ×2 (08:19→17:22)
[2017-02-11] MEDS: DOFETILIDE PO SCH ×2 (08:20→20:44)
[2017-02-11] MEDS: Polyethylene Glycol 3350 17 GM Packet PO SCH (09:00)
--- NOTE | 2017-02-11 10:46 | PRG ---
DATE OF SERVICE: 02/11/2017 SUBJECTIVE: The patient said she is pretty tired today. Yesterday she had received a Zaroxolyn for an increase in her weight and she said she was up back and forth to the bathroom about every 30 min utes. She said she pretty much exhausted just the usual case for her after she has had the Zaroxoly n. The patient said her breathing is doing good. OBJECTIVE: The patient is sitting up in a bedside chair. She is alert, appears comfortable, in no distress. Temp 97, pulse 93, respirations 20, O2 sat 95% on 3.5 liters, blood pressure 116/55. Her weight is down to 161. Yesterday's was up to 166. Her lungs are clear. Heart, regular rate. Ext remities showed no edema. Her labs today shows sodium 138, potassium dropped to 2.8 secondary to large diuresis. Her BUN is 2 0, dropped from 27 to 22, creatinine is 1.04, GFR is stable at 51, glucose 109. ASSESSMENT: 1. Severe generalized weakness and deconditioning. A. Chronic weakness secondary to her severe comorbidities and hypoxemia with acute exacerbation secondary to recent hospitalization from 12/30/2016 to 01/06/2017. B. Upon presentation to this hospital she was unable to walk or even sit up in a chair. C. Complicated by marked decline in her functional capabilities. D. Overall improved, but today increased fatigue due to the frequent bathroom trips for the diu resis from the Zaroxolyn as of 02/11/2017. 2. 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 3. Chronic atrial fibrillation. A. Status post electrical cardioversion with recurrence. B. Status post multiple ablations with recurrence. Required pacemaker for prevention of symptomatic bradycardia and medicines to control rapid rates. C. Status post Watchman procedure 02/03/2016. D. Rate controlled. 4. Chronic diastolic heart failure. A. The patient has a chronic congestive failure with cardiomegaly, bilateral pleural effusions, right greater than left. B. Stable. No evidence of acute on chronic congestive heart failure as of 02/04/2017. C. Managed with 1800 mL fluid restriction, the Lasix, and periodic doses of Zaroxolyn. D. Weight gradually increased to 166 as of 02/10/2017 for which she received Zaroxolyn 5 mg. W eight now down to 161 as of 02/11/2017. 5. Severe pulmonary hypertension. A. Complicated by chronic hypoxemia. B. Complicated by severe enlargement of the right ventricle with severe tricuspid regurgitation . C. Complicated by severe right heart failure. D. Complicated by episodes of severe orthostatic hypotension. This is improved with no (white out) spells for about a week as of 02/06/2017. 6. Chronic hypoxic respiratory failure. A. 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 B. Requires continuous supplemental O2 at 2-3 liters. 7. Hypertension. 8. Chronic kidney disease stage 3. 9. Anemia of chronic illness, stable. 10. Depression, controlled. 11. Hypercholesterolemia. 12. Mitral regurgitation. 13. Right middle and lower lobe pneumonia. A. Resolved. B. Completed a 10 day course of Ceftin. 14. Venous insufficiency. 15. Recent fall resulting in laceration right temporal area with suturing that has healed and sprain of the right ankle that is improving. 16. Right anterior pleural rub, resolved. 17. Orthostatic hypotension. A. Complicated by near syncope/syncopal episodes that she describes as white out spells. B. Stable as of 01/29/2017. C. Last episode on the afternoon of 02/01/2017. No recurrence as of 02/11/2017. D. Etiology severe right heart failure with decreased venous return to the left heart. 18. Hypokalemia secondary to the diuresis. A. The potassium has dropped to 2.8 after the brisk diuresis from the Zaroxolyn as of 7. 19. Sprain of the right ankle is healing as of 02/08/2017. PLAN: The patient doing overall better, but is weak today from all the activities going back and fo rth to the restroom with frequent need to urinate. The patient has had no trouble ambulating withou t her boot, the sprained ankle is all resolving. The patient right now will only have help at home Tuesday through Tuesday from about 8-3. We will delay discharge with her fatigue today and the low po tassium. I have restarted potassium supplementation. I visited with patient about her condition an d her need for further in home help. Her lives there with her, but his help is such that he cannot really provide much in the way of caregiving. The patient and her daughter, Heidi, will loo k to see what they can do to expanded coverage to 7 days a week and maybe someone for her in the [place] [facility]. If this can be arranged, may discharge in the morning or wait until Tuesday02/14/2017. We will do a follow up potassium in the morning.
[2017-02-11] MEDS: Atorvastatin Calcium 10 MG TAB PO SCH (20:41)
[2017-02-12 05:34] LABS: Anion Gap 14 mmol/L (10-20); BUN (Urea Nitrogen) 22 mg/dL (9.8-20.1); Calc. Creatinine Clearance 53 mL/min (70-130); Calcium 8.5 mg/dL (7.8-10.44); Carbon Dioxide 31 mmol/L (23-31); Chloride 97 mmol/L (98-107); Estimated GFR-MDRD 58; Glucose 115 mg/dL (83-110); Sodium 139 mmol/L (136-145)
[2017-02-12 05:40] LABS: Potassium 2.8 mmol/L (3.5-5.1)
[2017-02-12] MEDS: Furosemide 80 MG TAB PO SCH ×2 (08:27→13:05)
[2017-02-12] MEDS: Potassium Chloride 20 MEQ TAB PO SCH ×3 (08:27→16:41)
[2017-02-12] MEDS: Docusate 100 MG CAP PO SCH ×2 (08:28→19:39)
[2017-02-12] MEDS: FLUoxetine HCl 20 MG CAP PO SCH (08:28)
[2017-02-12] MEDS: Clotrimazole 1% Cream 15 GM TUBE TOP SCH ×2 (08:28→19:40)
[2017-02-12] MEDS: Polyethylene Glycol 3350 17 GM Packet PO SCH (08:29)
[2017-02-12] MEDS: Metoprolol Tartrate 25 MG TAB PO SCH ×2 (08:29→19:41)
[2017-02-12] MEDS: DOFETILIDE PO SCH ×2 (08:30→19:41)
--- NOTE | 2017-02-12 14:55 | PRG ---
DATE OF SERVICE: 02/12/2017 SUBJECTIVE: The patient said she feels a lot better. She slept good last night. Her weight has dr opped further. She is having no shortness of breath. OBJECTIVE: GENERAL: The patient is alert, talkative, appears very good spirits and in no distress. VITAL SIGNS: Show temperature 97.4, pulse 97, respirations 18, O2 saturation 98% on 3-1/2 liters, b lood pressure 100/53. LUNGS: Clear except for some early rales at the right base. Remainder of the chest is clear. HEART: Regular rate. EXTREMITIES: No edema. LABORATORY DATA: Her lab shows sodium 139, potassium 2.8, BUN 22, creatinine 0.92. FBS 115, GFR up to 58. Her weight is down to 158 pounds. ASSESSMENT: 1. Severe generalized weakness and deconditioning. A. Chronic weakness secondary to her severe comorbidities and hypoxemia with acute exacerbation secondary to recent hospitalization from 12/30/2016 to 01/06/2017. B. Upon presentation to this hospital she was unable to walk or even sit up in a chair. C. Complicated by marked decline in her functional capabilities. D. With marked improvement in the fatigue as of 02/12/2017. Weight has dropped now to 158 with no evidence of acute congestive heart failure as of 02/12/2017. 2. Recent hospitalization at [facility] from 12/30/2016 to 01/06/2017 for acute on synchronizer shannon diastolic congestive heart failure with a large right-sided pleural effusion requiring thoracent esis of 1000 mL of a transudate, right middle and lower lobe pneumonia, syncope and atrial fibrillati on. 3. Chronic atrial fibrillation. A. Status post electrical cardioversion with recurrence. B. Status post multiple ablations with recurrence. Required pacemaker for prevention of symptomatic bradycardia and medicines to control rapid rates. C. Status post Watchman procedure 02/03/2016. D. Rate controlled. 4. Chronic diastolic heart failure. A. The patient has a chronic congestive failure with cardiomegaly, bilateral pleural effusions, right greater than left. B. Stable. No evidence of acute on chronic congestive heart failure as of 02/04/2017. C. Managed with 1800 mL fluid restriction, the Lasix, and periodic doses of Zaroxolyn. D. Weight gradually increased to 166 as of 02/10/2017 for which she received Zaroxolyn 5 mg. W eight now down to 161 as of 02/11/2017. 5. Severe pulmonary hypertension. A. Complicated by chronic hypoxemia. B. Complicated by severe enlargement of the right ventricle with severe tricuspid regurgitation . C. Complicated by severe right heart failure. D. Complicated by episodes of severe orthostatic hypotension. This is improved with no white o ut spells over a 10-day period as of 02/12/2017. 6. Chronic hypoxic respiratory failure. A. 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 B. Requires continuous supplemental O2 at 2-3 liters. 7. Hypertension. 8. Chronic kidney disease stage 3. A. Improved GFR up to 58 as of 02/12/2017. 9. Anemia of chronic illness, stable. 10. Depression, controlled. 11. Hypercholesterolemia. 12. Mitral regurgitation. 13. Right middle and lower lobe pneumonia. A. Resolved. B. Completed a 10 day course of Ceftin. 14. Venous insufficiency. 15. Recent fall resulting in laceration right temporal area with suturing that has healed and sprain of the right ankle that is improving. 16. Right anterior pleural rub, resolved. 17. Orthostatic hypotension. A. Complicated by near syncope/syncopal episodes that she describes as white out spells. B. Stable as of 01/29/2017. C. Last episode on the afternoon of 02/01/2017. No recurrence as of 02/11/2017. D. Etiology severe right heart failure with decreased venous return to the left heart. 18. Hypokalemia secondary to the diuresis. A. The potassium has dropped to 2.8 after the brisk diuresis from the Zaroxolyn as of 7. 19. Sprain of the right ankle is healing as of 02/08/2017. PLAN: Potassium still at 2.8. We will increase her potassium to 20 mEq t.i.d. and continue to gabriela tor this. Family is making arrangements for more in the home health. Anticipate discharge on , 02/14/2017, recheck basic metabolic panel in the morning.
[2017-02-12] MEDS: Atorvastatin Calcium 10 MG TAB PO SCH (19:39)
[2017-02-13 06:18] LABS: Anion Gap 13 mmol/L (10-20); BUN (Urea Nitrogen) 22 mg/dL (9.8-20.1); Calc. Creatinine Clearance 57 mL/min (70-130); Carbon Dioxide 31 mmol/L (23-31); Chloride 99 mmol/L (98-107); Estimated GFR-MDRD 64; Glucose 111 mg/dL (83-110); Sodium 140 mmol/L (136-145)
[2017-02-13 06:21] LABS: Potassium 2.8 mmol/L (3.5-5.1)
[2017-02-13 06:24] LABS: Calcium 8.3 mg/dL (7.8-10.44)
[2017-02-13] MEDS: Potassium Chloride 20 MEQ TAB PO SCH ×3 (08:07→16:47)
[2017-02-13] MEDS: Polyethylene Glycol 3350 17 GM Packet PO SCH (08:07)
[2017-02-13] MEDS: Metoprolol Tartrate 25 MG TAB PO SCH ×2 (08:07→20:45)
[2017-02-13] MEDS: FLUoxetine HCl 20 MG CAP PO SCH (08:07)
[2017-02-13] MEDS: Docusate 100 MG CAP PO SCH ×2 (08:07→20:45)
[2017-02-13] MEDS: Furosemide 80 MG TAB PO SCH ×2 (08:07→14:34)
[2017-02-13] MEDS: Clotrimazole 1% Cream 15 GM TUBE TOP SCH ×2 (08:08→20:47)
[2017-02-13] MEDS: DOFETILIDE PO SCH ×2 (08:08→20:46)
[2017-02-13] MEDS: Atorvastatin Calcium 10 MG TAB PO SCH (20:46)
[2017-02-14 05:54] LABS: Anion Gap 13 mmol/L (10-20); BUN (Urea Nitrogen) 20 mg/dL (9.8-20.1); Calc. Creatinine Clearance 57 mL/min (70-130); Calcium 8.2 mg/dL (7.8-10.44); Carbon Dioxide 30 mmol/L (23-31); Chloride 99 mmol/L (98-107); Estimated GFR-MDRD 64; Glucose 106 mg/dL (83-110); Sodium 139 mmol/L (136-145)
[2017-02-14] MEDS: Potassium Chloride 20 MEQ TAB PO SCH ×2 (08:13→12:01)
[2017-02-14] MEDS: Polyethylene Glycol 3350 17 GM Packet PO SCH (08:13)
[2017-02-14] MEDS: Metoprolol Tartrate 25 MG TAB PO SCH (08:13)
[2017-02-14] MEDS: Docusate 100 MG CAP PO SCH (08:14)
[2017-02-14] MEDS: FLUoxetine HCl 20 MG CAP PO SCH (08:14)
[2017-02-14] MEDS: Clotrimazole 1% Cream 15 GM TUBE TOP SCH (08:14)
[2017-02-14] MEDS: Furosemide 80 MG TAB PO SCH (08:14)
[2017-02-14] MEDS: DOFETILIDE PO SCH (08:15)
[2017-02-14 09:20] VITALS: TEMP 98.2
[2017-02-14 09:24] VITALS: BP 116/56
[2017-02-14 13:05] VITALS: BMI 26.9
--- NOTE | 2017-02-14 13:27 | DIS ---
FINAL DIAGNOSES: 1. Severe generalized weakness and deconditioning. A. Chronic weakness secondary to her severe comorbidities and hypoxemia with acute exacerbation secondary to recent hospitalization from 12/30/2016 to 01/06/2017. B. Upon presentation to this hospital she was unable to walk or even sit up in a chair. C. Complicated by marked decline in her functional capabilities. D. Marked improvement with weight stable at 161 as of 02/14/2017. 2. 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 3. Chronic atrial fibrillation. A. Status post electrical cardioversion with recurrence. B. Status post multiple ablations with recurrence. Required pacemaker for prevention of symptomatic bradycardia and medicines to control rapid rates. C. Status post Watchman procedure 02/03/2016. D. Rate controlled. 4. Chronic diastolic heart failure. A. The patient has a chronic congestive failure with cardiomegaly, bilateral pleural effusions, right greater than left. B. Stable. No evidence of acute on chronic congestive heart failure with weight stable at 161 as of 02/14/2017. C. Managed with 1800 mL of fluid restriction, daily Lasix and periodic Zaroxolyn. 5. Severe pulmonary hypertension. A. Complicated by chronic hypoxemia. B. Complicated by severe enlargement of the right ventricle with severe tricuspid regurgitation . C. Complicated by severe right heart failure. D. Complicated by episodes of severe orthostatic hypotension. This is improved with no white o ut spells over a 10-day period as of 02/14/2017. 6. Chronic hypoxic respiratory failure. A. 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 B. Requires continuous supplemental O2 at 3-4 liters. 7. Hypertension. 8. Chronic kidney disease stage 3. A. Improved GFR up to 58 as of 02/12/2017. 9. Anemia of chronic illness, stable. 10. Depression, controlled. 11. Hypercholesterolemia. 12. Mitral regurgitation. 13. Right middle and lower lobe pneumonia. A. Resolved. B. Completed a 10 day course of Ceftin. 14. Venous insufficiency. 15. Recent fall resulting in laceration right temporal area with suturing that has healed and sprain of the right ankle that is improving. 16. Right anterior pleural rub, resolved. 17. Orthostatic hypotension. A. Complicated by near syncope/syncopal episodes that she describes as white out spells. B. Stable as of 01/29/2017. C. Last episode on the afternoon of 02/01/2017. No recurrence as of 02/14/2017. D. Etiology severe right heart failure with decreased venous return to the left heart. 18. Hypokalemia secondary to the diuresis. A. The potassium has dropped to 2.8 after the brisk diuresis from the Zaroxolyn as of 7. 19. Sprain of the right ankle is healing as of 02/08/2017. RECENT LABORATORY: 02/14/2017 - Sodium 139, potassium 3.0, BUN 20, creatinine 0.85, GFR 64, glucose 106 . On 02/11/2017, H\T\H 8.7 and 28.7, white cell count 9600 with 80% segs, 8% lymphocytes, and platelet count of 353,000. Admission weight 165. Discharge weight 161. SUMMARY: The patient is an 81-year-old white female who has a history of chronic atrial fibrillatio n for which she has undergone multiple electrical cardioversion with recurrence, multiple ablations with recurrence, eventually required pacemaker for prevention of symptomatic bradycardia, now rate m anaged with Tikosyn and metoprolol. She also has chronic diastolic heart failure, severe pulmonary hypertension complicated by severe right ventricular enlargement, severe tricuspid regurgitation and severe right heart failure. The patient has chronic hypoxic respiratory failure secondary to inter stitial lung disease from amiodarone toxicity requiring continuous supplemental O2. Additionally, s he has hypertension, chronic kidney disease and mitral regurgitation. The patient was hospitalized at [facility] from 12/30/2016 until 01/06/2017 for acute on chronic diastolic heart failu re with a large right-sided pleural effusion requiring a thoracentesis of 1000 mL of a transudate an d also right middle and lower lobe pneumonia, syncope and the atrial fibrillation. The patient requ ired diuresis and required reduction in her metoprolol to 6.25 mg twice a day. The patient while ho spitalized still had low blood pressure and attempt to stop that was made but when this was stopped she had more episodes of tachycardia from the chronic atrial fibrillation and required the addition of a low dose. The patient was left extremely weak and could not even get up out of bed due to the shortness of breath. She was transferred to [facility] after she was stable on 01/06/2017 for continual convalescence and treatment of her multiple medical problems and for purpose of PT and OT in an effort to try to increase her capabilities and functional capabilities. Prior to the hospita lization, she was living at home and was ambulatory with a walker, but required some assistance with her ADLs. She is hoping to return to this level of functioning. HOSPITAL COURSE: When patient first arrived, she was exhausted. She had some decreased breath soun ds over the right base. Her heart had a regular rate. She had no peripheral edema. Her admission weight was 165. She was unable to sit up in a chair or ambulate. Physical Therapy worked with her and gradually her level of activities were increased to where she was tolerating sitting up in a irvin ir, was able to assist with transfer and eventually able to transfer independently. She gradually w as able to walk in her room with her walker and eventually walked in the hallways. On her good days and she was able to walk up to 110 feet, usually she could walk twice today up to 80 feet with a ro WITOIing walker. Some days her activities were severely limited due to the weakness from added diuresi s and increased shortness of breath. IT was affected by some orthostatic hypotensive episodes, but eventually her strength by discharge was markedly improved to where she was ambulating with a walker back and forth to the bathroom with just standby assistance and transferring independently. During her hospitalization the patient had several episodes of increasing weight, accompanied by increased shortness of breath and a drop in her oxygen saturation. These usually were manifestations of acu te congestive heart failure on her chronic heart failure and for these, she was given Zaroxolyn 5 mg and this would create along with the furosemide a very excellent diuresis with loss of several poun ds. She usually was extremely weak the day after and not able to participate much with physical the rapy that day after. It also caused some severe hypokalemic episodes. This was managed with additi onal potassium supplementation. The patient also had to have her metoprolol reduced to 6.25 mg twic e a day and this was held if blood pressure was less than 105. This was because the patient had so me syncopal spells when she was up on her feet secondary to severe orthostatic hypotension. At home these events occur and she describes them as whiteout spells. This was managed with the use of a kn ee high support hose, the reduction of the metoprolol to 6.25 b.i.d. and patient warned that if she is having these episodes, then she needs immediately to lay down in an elevator her feet. The patie nt's condition gradually improved, but this will be on own ongoing issue due to her chronic diastoli c dysfunction and the chronic right heart failure. The patient has to very cautiously manage her fl uids to prevent the acute exacerbations. The patient's condition had improved such that it was felt that she can be discharged on 02/14/2017. She will have help at home from private care individuals that will be there in the day and stay at night and also home health will be looking in on her and will arrange for in-home PT and OT. DIET: No added salt diet. 1800 mL fluid restriction per day. ACTIVITIES: Up in a chair as tolerated. Ambulate with the use of a rolling walker as tolerated. I f the patient has symptoms of a whiteout spell then she should immediately lay back and elevate her feet until the episode passes. Medications; O2 at 3-4 liters per minute, acetaminophen 325 mg 2 every 4 hours as needed, aspirin 81 mg daily, atorvastatin 40 mg daily, docusate sodium 100 mg b.i.d., fluoxetine 20 mg daily, furosemi de 80 mg b.i.d., metoprolol 6.25 mg b.i.d. (the patient may be a 25 mg metoprolol tartrate twi ce a day), pantoprazole 40 mg daily, MiraLax 17 grams in 8 ounces water daily, potassium chloride ex tended release 20 mEq b.i.d., Tikosyn 0.25 mg b.i.d., Zaroxolyn 5 mg when weight greater than 3 poun ds above her baseline. Management of CHF as follows. Weigh daily. If daily weight is equal to or more than 3 pounds, then she should take a Zaroxolyn. She can also take a Zaroxolyn 5 mg if her weight is up 2 pounds or mo re and she is more short of breath, her O2 sat is less than her baseline. The Zaroxolyn should be t aken daily until her weight goes back to her baseline weight. When she has had to take the Zaroxoly n she should take a third potassium the day she takes the Zaroxolyn and the following day. FOLLOW UP: Home health will be seeing patient and in a week I will do a CBC and basic metabolic abad el. The patient should follow up with her hat ironer, Dr. Mcallister, when she feels she can make t his trip to [place]. We will see the patient in followup in my office in 2 weeks unless there is inte rval problem. CODE STATUS: Full code.
[2017-02-14] MEDS ORDERED: FLU VACC TS2017-18 (>65YR) 0.5 ML SYRINGE IM ONE (21:00)
== END 2017-02-14 15:00 | disposition home health service (06) | DRG 947 ==
LOC: MADMS 19:13
PROVIDERS: ADMIT Family Medicine; ATTEND Family Medicine
DX: R53.1 Weakness (principal); J18.9 Pneumonia, unspecified organism; J96.11 Chronic respiratory failure with hypoxia; I13.0 Hypertensive heart and chronic kidney disease with heart failure and stage 1 through stage 4 chronic kidney disease, or unspecified chronic kidney disease; I48.2 Chronic atrial fibrillation; I50.810 Right heart failure, unspecified; I50.32 Chronic diastolic (congestive) heart failure; I08.1 Rheumatic disorders of both mitral and tricuspid valves; I27.20 Pulmonary hypertension, unspecified; Z95.0 Presence of cardiac pacemaker; N18.3 Chronic kidney disease, stage 3 (moderate); D63.1 Anemia in chronic kidney disease; E78.00 Pure hypercholesterolemia, unspecified; F32.9 Major depressive disorder, single episode, unspecified; K21.9 Gastro-esophageal reflux disease without esophagitis; I87.2 Venous insufficiency (chronic) (peripheral); I95.1 Orthostatic hypotension; S01.81XD Laceration without foreign body of other part of head, subsequent encounter; W19.XXXD Unspecified fall, subsequent encounter; E87.6 Hypokalemia; T50.2X5A Adverse effect of carbonic-anhydrase inhibitors, benzothiadiazides and other diuretics, initial encounter; S93.401D Sprain of unspecified ligament of right ankle, subsequent encounter
CPT/HCPCS: 36415; 71020; 80048; 85025; 90471; 90682; 93005; 93010; G0008; G8978-GP-CJ; G8978-GP-CL; G8979-GP-CI; J3430; Q2036

== ENCOUNTER 2017-05-02 13:41 | Outpatient (CLI) | payer MEDICARE, OTHER ==
[2017-05-02 14:08] LABS: Anion Gap 21 mmol/L (10-20); BUN (Urea Nitrogen) 25 mg/dL (9.8-20.1); Calc. Creatinine Clearance 0 mL/min (70-130); Calcium 9.1 mg/dL (7.8-10.44); Chloride 98 mmol/L (98-107); Estimated GFR-MDRD 46; Glucose 120 mg/dL (83-110); Potassium 3.6 mmol/L (3.5-5.1); Sodium 143 mmol/L (136-145)
[2017-05-02 14:21] LABS: Carbon Dioxide 28 mmol/L (23-31)
== END 2017-05-02 13:42 | disposition home or self-care (01) ==
LOC: MADLAB 13:41
PROVIDERS: ATTEND Internal Medicine Cardiovascular Disease
DX: I50.32 Chronic diastolic (congestive) heart failure (principal)
CPT/HCPCS: 36415; 80048

== ENCOUNTER 2017-07-12 10:02 | Outpatient (CLI) | payer MEDICARE, OTHER ==
[2017-07-12 10:56] LABS: #Basophils 0.1 thou/uL (0.0-0.2); #Eosinphils 0.2 thou/uL (0.0-0.7); #Lymphocytes 0.8 thou/uL (1.20-3.40); #Monocytes 0.5 thou/uL (0.11-0.59); %Basophils 0.9 % (0.0-1.0); %Eosinophils 2.1 % (0.0-10.0); %Monocytes 6.7 % (0.0-10.0); %Neutrophils 79.2 % (42.0-75.0); Hemoglobin 12.4 g/dL (12.0-16.0); Mean Corpuscular HGB CONC 32.1 g/dL (32.0-36.0); Mean Corpuscular Hemoglobin 31.8 pg (27.0-31.0); Mean Corpuscular Volume 98.8 fl (81.0-99.0); Mean Platelet Volume 6.1 fL (7.4-10.4); Platelet Count 254 thou/uL (130-400); RBC Distribution Width 15.5 % (11.5-14.5); White Blood Cell (WBC) Count 7.6 thou/uL (4.8-10.8)
[2017-07-12 11:12] LABS: ALT (SGPT) 10 U/L (8-55); AST (SGOT) 19 U/L (5-34); Albumin 3.5 g/dL (3.4-4.8); Alkaline Phosphatase 95 U/L (40-150); Anion Gap 16 mmol/L (10-20); BUN (Urea Nitrogen) 39 mg/dL (9.8-20.1); Bilirubin, Total 0.8 mg/dL (0.2-1.2); Calc. Creatinine Clearance 0 mL/min (70-130); Calcium 8.9 mg/dL (7.8-10.44); Carbon Dioxide 32 mmol/L (23-31); Chloride 98 mmol/L (98-107); Cholesterol 118 mg/dl (< 200 Desired); Estimated GFR-MDRD 40; Globulin 3.3 g/dL (2.4-3.5); Glucose 111 mg/dL (83-110); HDL Cholesterol 40 mg/dL (>60 Neg Risk); LDL Cholesterol, Calculated 68 mg/dL; Potassium 3.1 mmol/L (3.5-5.1); Protein, Total 6.8 g/dL (6.0-8.3); Sodium 143 mmol/L (136-145); Triglycerides 50 mg/dL (Less than 150)
== END 2017-07-12 10:03 | disposition home or self-care (01) ==
LOC: MADLABBHPM 10:02
PROVIDERS: ATTEND Internal Medicine Cardiovascular Disease
DX: K92.2 Gastrointestinal hemorrhage, unspecified (principal); E78.00 Pure hypercholesterolemia, unspecified; D64.9 Anemia, unspecified
CPT/HCPCS: 36415; 80053; 80061; 85025

== ENCOUNTER 2017-10-15 09:00 | Emergency (ER) | payer MEDICARE, OTHER ==
--- NOTE | 2017-10-15 09:58 | CT ---
CT PELVIS WITH CORONAL AND SAGITTAL REFORMATIONS: Date: 10/15/17 HISTORY: Right hip pain. FINDINGS: There are degenerative changes in the lower lumbar spine, sacroiliac joints, hip joints, and the pubi c symphysis. No acute fracture, dislocation, or bony destruction is identified. Mild enthesopathic ch anges are seen at the greater trochanters and ischial tuberosities. IMPRESSION: Chronic changes. No acute bony process. POS: [facility]
== END 2017-10-15 10:20 | disposition home or self-care (01) ==
LOC: MADERS 09:00
DX: S70.01XA Contusion of right hip, initial encounter (principal); I25.10 Atherosclerotic heart disease of native coronary artery without angina pectoris; I48.91 Unspecified atrial fibrillation; F41.9 Anxiety disorder, unspecified; Z87.891 Personal history of nicotine dependence; Z79.899 Other long term (current) drug therapy; Z79.82 Long term (current) use of aspirin; W17.89XA Other fall from one level to another, initial encounter
CPT/HCPCS: 72192